=== PATIENT | male | born 1965 | race Caucasian/White ===

== ENCOUNTER 2017-04-06 13:33 | Observation (INO) | payer OTHER ==
[~2017-04-06] VITALS: Ht 167.6 cm; Wt 117.0 kg
[2017-04-06] MEDS ORDERED: ALBUT/IPRATROP 3MG/0.5MG NEB 3 ML VIAL INH STA (14:14)
[2017-04-06 14:37] LABS: BASO % 0.6 %; BASO ABS # 0.03 K/uL (0-0.2); EOS % 1.1 %; EOS ABS # 0.05 K/uL (0-0.5); HEMATOCRIT 45.5 % (42-52); HEMOGLOBIN 15.4 g/dL (14.0-18.0); IG# 0.02 K/uL (0.00-0.02); LYMPH % 32.3 %; LYMPH ABS # 1.52 K/uL (1.2-3.4); MEAN CELL VOLUME 86.2 fL (80-100); MEAN CORPUSCULAR HEMOGLOBIN 29.2 pg (25-34); MEAN CORPUSCULAR HGB CONC 33.8 g/dl (32-36); MEAN PLATELET VOLUME 10.3 fL (7.4-10.4); MONO % 13.8 %; MONO ABS # 0.65 K/uL (0.11-0.59); NEUT % 51.8 %; NEUT ABS # 2.43 K/uL (1.4-6.5); PLATELET COUNT 200 K/uL (130-400); RED CELL DISTRIBUTION WIDTH CV 13.9 % (11.5-14.5); RED CELL DISTRIBUTION WIDTH SD 43.8 fL (36.4-46.3)
--- NOTE | 2017-04-06 14:39 | EMERGENCY ROOM VISIT NOTE ---
History First contact with patient: 13:57 Chief Complaint: SHORTNESS OF BREATH Stated Complaint: SOB Nursing Triage Summary: Patient with c/o SOB and cold symptoms for one month. Patient was on Augmentin without relief. Seen at [facility] and sent here for Eval due to hypoxia( 86% ) with ambulation . History of Present Illness The patient is a 51 year old male who presents to the Emergency Room with complaints of cough, shortness of breath and intermittent fevers for approximately 1 month. The patient saw his primary care physician. He finished a course of Augmentin. Initially his sputum was dark brown in color. After the Augmentin, it is now clear. He did not take his temperature at home, but he has felt chills and sweats. He denies any chest pain. He denies abdominal pain or nausea. He has had some diarrhea the last 2 days. He denies any history of blood clots. He is a former smoker. 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 He denies any leg pain bilaterally. Review of Systems 10 system review performed and negative unless noted in HPI or below Past Medical/Surgical History Medical Problems: (1) Cough productive of purulent sputum Hypertension Borderline diabetes type 2 Social History Smoking Status: Former Smoker Alcohol Use: occasionally Occupation Status: employed Current/Historical Medications Scheduled Amlodipine (Norvasc), 10 MG PO QAM Dextromethorphan Polymr Complx (Delsym), 5 ML PO UD Hydrochlorothiazide (Hctz), 25 MG PO QAM Naproxen Sodium (Aleve), 440 MG PO UD Physical Exam Vital Signs Date Time Temp Pulse Resp B/P (MAP) Pulse Ox O2 Delivery O2 Flow Rate FiO2 04/06/17 18:07 72 20 144/71 95 Nasal Cannula 2.0 04/06/17 17:10 72 18 140/75 95 Room Air 04/06/17 16:32 81 18 138/75 94 Nasal Cannula 2.0 04/06/17 15:40 93 Nasal Cannula 2.0 04/06/17 15:40 93 Nasal Cannula 2.0 04/06/17 15:34 91 24 135/76 91 Room Air 04/06/17 15:11 98 24 145/89 91 Room Air 04/06/17 14:21 99 04/06/17 14:12 92 Room Air 04/06/17 13:41 36.6 96 22 129/88 92 Room Air Physical Exam GENERAL: 51-year-old male, slightly disheveled and sweaty in appearance., SKIN: The skin was without rashes, erythema, edema, or bruising. There is no tenting of the skin. Capillary reflex less than 2 seconds. HEAD: Normocephalic atraumatic. MOUTH: Mucous membranes somewhat dry. NECK: No lymphadenopathy. Cervical spine is nontender. No JVD. HEART: Regular rate and rhythm without murmurs gallops or rubs. LUNGS: Few coarse breath sounds particularly at the left base. No wheezing. No tachypnea. ABDOMEN: Mildly distended. Positive bowel sounds x 4.Soft, nontender, without organomegaly. No guarding or rebound tenderness. MUSCULOSKELETAL: No muscle atrophy, erythema, or edema noted. Strength 5/5 throughout. NEURO: Patient was alert and oriented to person place and time. Normal sensation to touch. No focal neurological deficits. Medical Decision & Procedures ER Provider Diagnostic Interpretation: CT chest with contrast IMPRESSION: 1. There is no evidence of pulmonary embolus in the main, lobar, or segmental pulmonary arteries. 2. Cardiomegaly. 3. There is no airspace consolidation or pleural effusion. Mild diffuse peribronchial thickening suggests reactive airway disease. Clinical correlation will be required. 4. There is nonspecific mediastinal and hilar adenopathy. This may be on a reactive basis; however, other etiologies are not excluded. Clinical correlation will be essential. Consider follow-up chest CT in several months time for reassessment. 5. Splenomegaly and hepatic steatosis. 6. Additional findings as above. Electronically signed by: Avinash Guzman M.D. Laboratory Results 04/06/17 14:20 Red Blood Count 5.28, Mean Corpuscular Volume 86.2, Mean Corpuscular Hemoglobin 29.2, Mean Corpuscular Hemoglobin Concent 33.8, Mean Platelet Volume 10.3, Neutrophils (%) (Auto) 51.8, Lymphocytes (%) (Auto) 32.3, Monocytes (%) (Auto) 13.8, Eosinophils (%) (Auto) 1.1, Basophils (%) (Auto) 0.6, Neutrophils # (Auto ) 2.43, Lymphocytes # (Auto) 1.52, Monocytes # (Auto) 0.65, Eosinophils # (Auto ) 0.05, Basophils # (Auto) 0.03 04/06/17 14:20 Test 04/06/17 14:20 04/06/17 15:08 04/06/17 16:34 White Blood Count 4.70 K/uL (4.8-10.8) Red Blood Count 5.28 M/uL (4.7-6.1) Hemoglobin 15.4 g/dL (14.0-18.0) Hematocrit 45.5 % (42-52) Mean Corpuscular Volume 86.2 fL (80-100) Mean Corpuscular Hemoglobin 29.2 pg (25-34) Mean Corpuscular Hemoglobin Concent 33.8 g/dl (32-36) Platelet Count 200 K/uL (130-400) Mean Platelet Volume 10.3 fL (7.4-10.4) Neutrophils (%) (Auto) 51.8 % Lymphocytes (%) (Auto) 32.3 % Monocytes (%) (Auto) 13.8 % Eosinophils (%) (Auto) 1.1 % Basophils (%) (Auto) 0.6 % Neutrophils # (Auto) 2.43 K/uL (1.4-6.5) Lymphocytes # (Auto) 1.52 K/uL (1.2-3.4) Monocytes # (Auto) 0.65 K/uL (0.11-0.59) Eosinophils # (Auto) 0.05 K/uL (0-0.5) Basophils # (Auto) 0.03 K/uL (0-0.2) RDW Standard Deviation 43.8 fL (36.4-46.3) RDW Coefficient of Variation 13.9 % (11.5-14.5) Immature Granulocyte % (Auto) 0.4 % Immature Granulocyte # (Auto) 0.02 K/uL (0.00-0.02) Prothrombin Time 10.8 SECONDS (9.0-12.0) Prothromb Time International Ratio 1.0 (0.9-1.1) D-Dimer 540 ug/L FEU (0-500) Anion Gap 7.0 mmol/L (3-11) Est Creatinine Clear Calc Drug Dose 81.4 ml/min Estimated GFR () 71.6 Estimated GFR (Non- 61.8 BUN/Creatinine Ratio 10.7 (10-20) Calcium Level 8.6 mg/dl (8.5-10.1) Total Bilirubin 0.8 mg/dl (0.2-1) Aspartate Amino Transf (AST/SGOT) 262 U/L (15-37) Alanine Aminotransferase (ALT/SGPT) 235 U/L (12-78) Alkaline Phosphatase 149 U/L (45-117) Total Creatine Kinase 249 U/L (39-308) Creatine Kinase MB 0.8 ng/ml (0.5-3.6) Creatine Kinase MB Ratio 0.3 (0-3.0) Troponin I < 0.015 ng/ml (0-0.045) Total Protein 8.2 gm/dl (6.4-8.2) Albumin 3.5 gm/dl (3.4-5.0) Globulin 4.7 gm/dl (2.5-4.0) Albumin/Globulin Ratio 0.7 (0.9-2) Acetaminophen Level < 2 ug/ml (10-30) Influenza Type A Antigen POS for Influ A (NEG) Influenza Type B Antigen Neg for Influ B (NEG) Ethyl Alcohol mg/dL < 3.0 mg/dl (0-3) Medications Administered Medications (Trade) Dose Ordered Sig/Juan Diego Route Start Time Stop Time Status Last Admin Dose Admin Albuterol/ Ipratropium (Duoneb) 3 ml ONE STAT INH 04/06/17 14:14 04/06/17 14:17 DC 04/06/17 15:00 3 ML Oseltamivir Phosphate (Tamiflu Cap) 75 mg NOW STAT PO 04/06/17 16:12 04/06/17 16:14 DC 04/06/17 16:18 75 MG Sodium Chloride 1,000 ml @ 999 mls/hr Q1H1M ONCE IV 04/06/17 16:15 04/06/17 17:15 DC 04/06/17 16:18 999 MLS/HR ED Course Patient was seen and examined Vital signs including blood pressure were reviewed medications list was verified with patient Labs were obtained, and a saline lock was established An EKG was performed and reviewed by myself. The patient was put on monitor. He was given an albuterol nebulizer treatment. The patient was reassessed. The albuterol had temporarily helped. We discussed his workup. I also discussed the workup with my supervising physician who is in agreement with my plan. The patient was given 1 dose of Tamiflu. He was also hydrated with 1 L of normal saline. The case was discussed with case management. It was subsequently discussed with the [facility]. [facility] agreed to evaluate the patient for further management. Medical Decision Differential diagnosis: Bronchitis, pneumonia, influenza , other viral syndrome , cardiac ischemia, arrhythmia, pulmonary embolus, C. difficile colitis This patient is a 51-year-old male that presents to emergency department with a cough, shortness of breath and intermittent fevers for the last month. On exam , he was mildly acutely ill in appearance. He was hypoxic at 89% on room air. he had coarse breath sounds at the left base. His workup reveals a positive influenza A. 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 CT of the chest was performed. This was negative for pneumonia or PE. Given his hypoxia, I do not comfortable discharging the patient home. The patient will be admitted to the [facility] service for further workup and treatment. Of note, the patient's LFTs were also abnormal. An acetaminophen and alcohol level were added. The patient admits to occasional alcohol use. This will likely need further workup. This chart was completed in part utilizing [employer] Speech Voice Recognition software. Attempts were made to minimize the grammatical errors, random word insertions, pronoun errors and incomplete sentences. Any formal questions or concerns about the content, text or information contained within the body of this dictation should be directly addressed to the provider for clarification. Medication Reconcilliation Current Medication List: was personally reviewed by de Blood Pressure Screening Patient's blood pressure: Normal blood pressure Impression Primary Impression: Influenza A Departure Information Referrals Wanda Correia C.R.N.P (PCP) Patient Instructions My [facility]
[2017-04-06] MEDS ORDERED: NAPR220T40 PO (14:40)
[2017-04-06] MEDS ORDERED: DLSYL PO (14:42)
[2017-04-06] MEDS ORDERED: HYDR25TA4 PO (14:49)
[2017-04-06] MEDS ORDERED: AMLO-114 PO (14:49)
[2017-04-06 14:56] LABS: ALBUMIN 3.5 gm/dl (3.4-5.0); ALT/SGPT 235 U/L (12-78); BLOOD UREA NITROGEN 14 mg/dl (7-18); CALCIUM 8.6 mg/dl (8.5-10.1); CARBON DIOXIDE 29 mmol/L (21-32); CREATININE 1.34 mg/dl (0.60-1.40); GLUCOSE 205 mg/dl (70-99); POTASSIUM 3.4 mmol/L (3.5-5.1); SODIUM 133 mmol/L (136-145)
[2017-04-06 15:01] LABS: ALKALINE PHOSPHATASE 149 U/L (45-117); AST/SGOT 262 U/L (15-37); CKMB 0.8 ng/ml (0.5-3.6); TOTAL PROTEIN 8.2 gm/dl (6.4-8.2)
[2017-04-06] MEDS ORDERED: OPTIRAY 320 IV PRN (15:15)
--- NOTE | 2017-04-06 15:37 | DIAGNOSTIC IMAGING REPORT ---
CT ANGIOGRAM OF THE CHEST CLINICAL HISTORY: Cough and dyspnea. COMPARISON STUDY: Chest radiographs dated 04/06/2017. TECHNIQUE: Following the IV administration of 94 cc of Optiray 320, CT angiogram of the chest was performed from the upper abdomen to the thoracic inlet utilizing the pulmonary embolus protocol. Images are reviewed in the axial, sagittal, and coronal planes. 3-D MIPS images are created and assessed. IV contrast was administered without complication. A dose lowering technique was utilized adhering to the principles of ALARA. CT DOSE: 653.86 mGy.cm FINDINGS: Thyroid: Imaged portions of the thyroid gland are normal in size and attenuation. Thoracic aorta: The thoracic aorta is normal in caliber and demonstrates standard 3-vessel arch anatomy. No dissection is seen. Pulmonary vasculature: The pulmonary trunk is normal in caliber. There are no filling defects identified in main, lobar, or segmental pulmonary branches to suggest pulmonary embolus. Heart: The heart is enlarged and there is trace pericardial effusion. Lungs and pleural spaces: Evaluation of the lung parenchyma is modestly degraded by motion artifact. There is mild diffuse peribronchial thickening. No airspace consolidation or pleural effusion is identified. Dependent atelectasis is observed the trachea and central airways are clear. Mediastinum: There is mediastinal lymphadenopathy. A right paratracheal node on image #180 measures 1.3 cm in short axis. A subcarinal node on image #137 measures 1.5 cm in short axis. Ivonne: There is bilateral hilar adenopathy. A hilar lymph nodes measure up to 2.1 cm in short axis. Axillae: There is no axillary lymphadenopathy. Upper abdomen: A tiny hiatal hernia is identified. The spleen is enlarged, measuring 15.3 cm in length. Hepatic steatosis is identified. Skeletal structures: No lytic or blastic bony lesions are seen. Soft tissues: A 1.5 cm sebaceous cyst is noted in the left upper back on image #224. IMPRESSION: 1. There is no evidence of pulmonary embolus in the main, lobar, or segmental pulmonary arteries. 2. Cardiomegaly. 3. There is no airspace consolidation or pleural effusion. Mild diffuse peribronchial thickening suggests reactive airway disease. Clinical correlation will be required. 4. There is nonspecific mediastinal and hilar adenopathy. This may be on a reactive basis; however, other etiologies are not excluded. Clinical correlation will be essential. Consider follow-up chest CT in several months time for reassessment. 5. Splenomegaly and hepatic steatosis. 6. Additional findings as above. Electronically signed by: Avinash Guzman M.D. 04/06/2017 3:36 PM Dictated Date/Time: 04/06/2017 3:31 PM
[2017-04-06 15:43] LABS: INFLUENZA B ANTIGEN Neg for Influ B (NEG)
[2017-04-06] MEDS ORDERED: OSELTAMIVIR PHOSPHATE 75 MG CAP PO STA (16:12)
[2017-04-06] MEDS ORDERED: SODIUM CHLORIDE 0.9% 1000ML 1,000 ML IV ONE (16:15)
[2017-04-06] MEDS ORDERED: ALUMINUM/MAGNESIUM/SIMETH (MAALOX MAX) 30 ML UDC PO PRN (18:00)
[2017-04-06] MEDS ORDERED: ONDANSETRON INJ 2 MG/ML 2 ML VIAL IV PRN (18:00)
[2017-04-06] MEDS ORDERED: MAGNESIUM HYDROXIDE SUSP 30 ML UDC PO PRN (18:00)
[2017-04-06] MEDS ORDERED: POLYETHYLENE (MIRALAX) 17 GM PACK PO PRN (18:00)
[2017-04-06 18:45] VITALS: BP 149/85; PULSE 79; TEMP 36.6; O2SAT 93; Ht 167.6 cm; Wt 117.0 kg
[2017-04-06] MEDS ORDERED: IV FLUIDS COMPLETED PRN (18:45)
--- NOTE | 2017-04-06 18:48 | History and Physical ---
History & Physical Date & Time of Service: Apr 06, 2017 at 18:41 Chief Complaint: SOB Primary Care Physician: Wanda Correia C.R.N.P History of Present Illness Source: patient The patient is a 51 year old male who presents to the Emergency Room with complaints of cough Over the past two days he has had worsening productive cough, chills, muscle aches and decreased appetite He then decided to go and see his PCP at [facility] and was told to come to the ED secondary to low oxygen levels Of note he has had nasal congestion and cough for one month and has been treated with augmentin for 1 week. In the ED he was found to be flu positive. A CT scan did not show any focal consolidations but did show splenomegaly and hepatic steatosis. He also had elevated AST and ALT in the 200's. The patient was ambulated in the ED and due to decreasing oxygen saturations to 88% with ambulation it was decided to admit the patient under observation. Past Medical/Surgical History HTN Diabetes Family History Dad had DM Mom had HTN Grandpa had DM No FH of lung disease Social History Smoking Status: Former Smoker Occupational Status: employed Allergies Coded Allergies: No Known Allergies (Unverified , 04/06/17) Home Medications Scheduled Amlodipine (Norvasc), 10 MG PO QAM Dextromethorphan Polymr Complx (Delsym), 5 ML PO UD Hydrochlorothiazide (Hctz), 25 MG PO QAM Naproxen Sodium (Aleve), 440 MG PO UD Review of Systems Constitutional: + fever, + chills ENT: + nasal symptoms Respiratory: + cough, + sputum, + shortness of breath Cardiovascular: No chest pain, No edema, No palpitations Abdomen: + nausea, + diarrhea, No pain, No vomiting, No constipation Musculoskeletal: + joint pain, + muscle pain Genitourinary - Male: No hematuria, No dysuria Integumentary: No rash, No itch, No new/changing skin lesions Physical Exam Vital Signs Date Time Temp Pulse Resp B/P (MAP) Pulse Ox O2 Delivery O2 Flow Rate FiO2 04/06/17 18:07 72 20 144/71 95 Nasal Cannula 2.0 04/06/17 17:10 72 18 140/75 95 Room Air 04/06/17 16:32 81 18 138/75 94 Nasal Cannula 2.0 04/06/17 15:40 93 Nasal Cannula 2.0 04/06/17 15:40 93 Nasal Cannula 2.0 04/06/17 15:34 91 24 135/76 91 Room Air 04/06/17 15:11 98 24 145/89 91 Room Air 04/06/17 14:21 99 04/06/17 14:12 92 Room Air 04/06/17 13:41 36.6 96 22 129/88 92 Room Air General Appearance: WD/WN, no apparent distress, + obese ENT: hearing grossly normal, pharynx normal Neck: supple, no JVD, trachea midline Respiratory/Chest: chest non-tender, no respiratory distress, no accessory muscle use, + wheezing (bilateral in both lower lobes) Cardiovascular: regular rate, rhythm, no murmur, normal peripheral pulses Abdomen/GI: normal bowel sounds, non tender, soft, + distended Back: normal inspection, no CVA tenderness Extremities/Musculoskelatal: no calf tenderness, no pedal edema, non-tender Neurologic/Psych: alert, normal mood/affect, oriented x 3 Diagnostics Laboratory Results Results Past 24 Hours Test 04/06/17 14:20 04/06/17 15:08 04/06/17 16:34 Range/Units White Blood Count 4.70 4.8-10.8 K/uL Red Blood Count 5.28 4.7-6.1 M/uL Hemoglobin 15.4 14.0-18.0 g/dL Hematocrit 45.5 42-52 % Mean Corpuscular Volume 86.2 80-100 fL Mean Corpuscular Hemoglobin 29.2 25-34 pg Mean Corpuscular Hemoglobin Concent 33.8 32-36 g/dl Platelet Count 200 130-400 K/uL Mean Platelet Volume 10.3 7.4-10.4 fL Neutrophils (%) (Auto) 51.8 % Lymphocytes (%) (Auto) 32.3 % Monocytes (%) (Auto) 13.8 % Eosinophils (%) (Auto) 1.1 % Basophils (%) (Auto) 0.6 % Neutrophils # (Auto) 2.43 1.4-6.5 K/uL Lymphocytes # (Auto) 1.52 1.2-3.4 K/uL Monocytes # (Auto) 0.65 0.11-0.59 K/uL Eosinophils # (Auto) 0.05 0-0.5 K/uL Basophils # (Auto) 0.03 0-0.2 K/uL RDW Standard Deviation 43.8 36.4-46.3 fL RDW Coefficient of Variation 13.9 11.5-14.5 % Immature Granulocyte % (Auto) 0.4 % Immature Granulocyte # (Auto) 0.02 0.00-0.02 K/uL Prothrombin Time 10.8 9.0-12.0 SECONDS Prothromb Time International Ratio 1.0 0.9-1.1 D-Dimer 540 0-500 ug/L FEU Sodium Level 133 136-145 mmol/L Potassium Level 3.4 3.5-5.1 mmol/L Chloride Level 98 98-107 mmol/L Carbon Dioxide Level 29 21-32 mmol/L Anion Gap 7.0 3-11 mmol/L Blood Urea Nitrogen 14 7-18 mg/dl Creatinine 1.34 0.60-1.40 mg/dl Est Creatinine Clear Calc Drug Dose 81.4 ml/min Estimated GFR () 71.6 Estimated GFR (Non- 61.8 BUN/Creatinine Ratio 10.7 10-20 Random Glucose 205 70-99 mg/dl Calcium Level 8.6 8.5-10.1 mg/dl Total Bilirubin 0.8 0.2-1 mg/dl Aspartate Amino Transf (AST/SGOT) 262 15-37 U/L Alanine Aminotransferase (ALT/SGPT) 235 12-78 U/L Alkaline Phosphatase 149 45-117 U/L Total Creatine Kinase 249 39-308 U/L Creatine Kinase MB 0.8 0.5-3.6 ng/ml Creatine Kinase MB Ratio 0.3 0-3.0 Troponin I < 0.015 0-0.045 ng/ml Total Protein 8.2 6.4-8.2 gm/dl Albumin 3.5 3.4-5.0 gm/dl Globulin 4.7 2.5-4.0 gm/dl Albumin/Globulin Ratio 0.7 0.9-2 Acetaminophen Level < 2 10-30 ug/ml Influenza Type A Antigen POS for Influ A NEG Influenza Type B Antigen Neg for Influ B NEG Ethyl Alcohol mg/dL < 3.0 0-3 mg/dl Diagnostic Radiology 1. There is no evidence of pulmonary embolus in the main, lobar, or segmental pulmonary arteries. 2. Cardiomegaly. 3. There is no airspace consolidation or pleural effusion. Mild diffuse peribronchial thickening suggests reactive airway disease. Clinical correlation will be required. 4. There is nonspecific mediastinal and hilar adenopathy. This may be on a reactive basis; however, other etiologies are not excluded. Clinical correlation will be essential. Consider follow-up chest CT in several months time for reassessment. 5. Splenomegaly and hepatic steatosis. Normal EKG Impression Assessment and Plan 51 year old male with a PMH of HTN and Diabetes presented with a flu like symptoms and was found to have influenza Influenza A - continue tamiflu PO - O2 via nasal cannula as needed - isolation precautions - duoneb prn shortness of breath - prednisone 40mg PO - no evidence of pneumonia on CT Transaminitis - AST and ALT elevated in 250's - likely secondary to the flu - no hx of alcohol abuse, IV drugs, blood transfusions, gallbladder disease - Does have hepatic steatosis - Will check lipids in the AM Diarrhea - check cdiff Hx of DMT2 - untreated currently but patient states starting medication soon - check HbA1c HTN - Continue HCTZ and amlodipine - continue to monitor BP DVT prophylaxis - lovenox 40mg subq FULL CODE Level of Care Med/Surg Resuscitation Status FULL RESUSCITATION VTE Prophylaxis VTE Risk Assessment Done? Y/N: Yes Risk Level: Moderate Given or contraindicated: Enoxaparin (Lovenox)SQ History Resident Physician Supervision Note: I was present with Dr. Day during the history and exam. I discussed the case with the resident and agree with the findings and plan as documented in the note. Any exceptions or clarifications are listed here. Acute on chronic cough in the setting of recent ABRS treated with abx with 2 days of acute exacerbation w/ flu +ve. Predominant sx is SOB on exertion/ ambulation which is stable here. Seen at [facility] and refered to [facility] General Appearance: mild distress, obese Eye Exam: bilateral eye PERRL, bilateral eye EOMI Neck: non-tender, full range of motion, supple Respiratory: chest non-tender, respiratory distress, decreased breath sounds (b /l bases), wheezing (b/l bases) Cardiovascular: normal peripheral pulses, regular rate, rhythm, no murmur Gastrointestinal: normal bowel sounds, non tender, soft Assessment/Plan 51 y/o male h/o HTN, DMII p/w Flu A + Flu A -continue tamiflu, O2 by protocol, duonebs and pred burst Transamintis -likely 2/2 influenza. Trend CMP Diarrhea - f/u C. Diff DMII -A1c HTN - continue HCTZ, amlodipine VTE PPX -lovenox FULL CODE
[2017-04-06] MEDS ORDERED: ALBUT/IPRATROP 3MG/0.5MG NEB 3 ML VIAL INH PRN (19:00)
[2017-04-06] MEDS: SODIUM CHLORIDE 0.9% 1000ML 1,000 ML IV SCH (19:39)
[2017-04-06] MEDS ORDERED: INFLUENZA ADMINISTRATION CHARGE ONE (19:45)
[2017-04-06] MEDS ORDERED: INFLUENZA VIRUS QUAD VACCINE 0.5 ML SYR IM. ONE (19:45)
[2017-04-06] MEDS ORDERED: ENOXAPARIN 40 MG/0.4 ML SYR SQ SCH (21:00)
[2017-04-06 23:31] VITALS: BP 144/82; PULSE 77; TEMP 37; O2SAT 90
[2017-04-07] MEDS: SODIUM CHLORIDE 0.9% 1000ML 1,000 ML IV SCH (04:22)
[2017-04-07 07:16] LABS: HEMATOCRIT 44.9 % (42-52); HEMOGLOBIN 15.2 g/dL (14.0-18.0); MEAN CELL VOLUME 85.9 fL (80-100); MEAN CORPUSCULAR HEMOGLOBIN 29.1 pg (25-34); MEAN CORPUSCULAR HGB CONC 33.9 g/dl (32-36); MEAN PLATELET VOLUME 10.4 fL (7.4-10.4); PLATELET COUNT 218 K/uL (130-400); RED CELL DISTRIBUTION WIDTH CV 13.8 % (11.5-14.5); RED CELL DISTRIBUTION WIDTH SD 43.4 fL (36.4-46.3)
[2017-04-07 07:26] VITALS: BP_SYST 117; BP_SYST 165; BP_DIAS 65; BP_DIAS 69; PULSE 73; TEMP 36.6; O2SAT 93
[2017-04-07 07:53] LABS: ALBUMIN 3.1 gm/dl (3.4-5.0); POTASSIUM 4.2 mmol/L (3.5-5.1); TOTAL PROTEIN 7.4 gm/dl (6.4-8.2)
[2017-04-07 08:00] VITALS: O2SAT 93
[2017-04-07] MEDS ORDERED: HYDROCHLOROTHIAZIDE 25 MG TAB PO SCH (08:00)
[2017-04-07] MEDS ORDERED: AMLODIPINE BESYLATE 5 MG TAB PO SCH (08:00)
[2017-04-07 08:14] LABS: HEMOGLOBIN A1C 7.5 % (4.5-5.6)
[2017-04-07] MEDS ORDERED: OSELTAMIVIR PHOSPHATE 75 MG CAP PO ONE (08:47)
--- NOTE | 2017-04-07 14:18 | Medical Student: [facility] ---
Med Student History & Physical Date & Time of Service: Apr 07, 2017 at 14:18 Chief Complaint: Cough Productive Of Purulent Sputum Primary Care Physician: Wanda Correia C.R.N.P History of Present Illness This is a 51-year-old man with a history of HTN, prediabetes, and a 5-6 pack- year smoking history who presents with a 1 month history of cough and lack of energy. He was treated with amoxicillin 1 week ago and said he did have improvement in his symptoms. Last evening, he says he began to have decreased energy, chills, muscle aches, wheezing, and SOB with exertion. He denies chest pain, pleurisy, subjective fever, leg swelling or pain, and tachycardia. Past Medical/Surgical History Hypertension Prediabetes Hx of tooth extraction Family History Father: pertinent history of ("dying young") Mother: HTN Grandfather: HTN, diabetes Social History Smoked 1/2 pack per day for 10-12 years. Quit 3 years ago. 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) Allergies Coded Allergies: No Known Allergies (Unverified , 04/06/17) Medications Amlodipine (Norvasc), 10 MG PO QAM Dextromethorphan Polymr Complx (Delsym), 5 ML PO UD Hydrochlorothiazide (Hctz), 25 MG PO QAM Naproxen Sodium (Aleve), 440 MG PO UD Oseltamivir (Tamiflu), 75 MG PO BID Prednisone (Prednisone), 40 MG PO DAILY Physical Exam Vital Signs (24 Hours) Date Time Temp Pulse Resp B/P (MAP) Pulse Ox O2 Delivery O2 Flow Rate FiO2 04/07/17 08:00 93 Room Air 04/07/17 07:26 36.6 73 20 165/69 (101) 93 Room Air 117/65 (82) 04/07/17 00:00 Room Air 04/06/17 23:31 37.0 77 18 144/82 (102) 90 Room Air 04/06/17 19:09 76 20 133/80 95 Room Air 04/06/17 18:45 36.6 79 18 149/85 93 Room Air 04/06/17 18:07 72 20 144/71 95 Nasal Cannula 2.0 04/06/17 17:10 72 18 140/75 95 Room Air 04/06/17 16:32 81 18 138/75 94 Nasal Cannula 2.0 04/06/17 15:40 93 Nasal Cannula 2.0 04/06/17 15:40 93 Nasal Cannula 2.0 04/06/17 15:34 91 24 135/76 91 Room Air 04/06/17 15:11 98 24 145/89 91 Room Air 04/06/17 14:21 99 Diagnostics Laboratory Results Results Past 24 Hours Test 04/06/17 14:20 04/06/17 15:08 04/06/17 16:34 04/06/17 19:26 Range/Units White Blood Count 4.70 4.8-10.8 K/uL Red Blood Count 5.28 4.7-6.1 M/uL Hemoglobin 15.4 14.0-18.0 g/dL Hematocrit 45.5 42-52 % Mean Corpuscular Volume 86.2 80-100 fL Mean Corpuscular Hemoglobin 29.2 25-34 pg Mean Corpuscular Hemoglobin Concent 33.8 32-36 g/dl Platelet Count 200 130-400 K/uL Mean Platelet Volume 10.3 7.4-10.4 fL Neutrophils (%) (Auto) 51.8 % Lymphocytes (%) (Auto) 32.3 % Monocytes (%) (Auto) 13.8 % Eosinophils (%) (Auto) 1.1 % Basophils (%) (Auto) 0.6 % Neutrophils # (Auto) 2.43 1.4-6.5 K/uL Lymphocytes # (Auto) 1.52 1.2-3.4 K/uL Monocytes # (Auto) 0.65 0.11-0.59 K/uL Eosinophils # (Auto) 0.05 0-0.5 K/uL Basophils # (Auto) 0.03 0-0.2 K/uL RDW Standard Deviation 43.8 36.4-46.3 fL RDW Coefficient of Variation 13.9 11.5-14.5 % Immature Granulocyte % (Auto) 0.4 % Immature Granulocyte # (Auto) 0.02 0.00-0.02 K/uL Prothrombin Time 10.8 9.0-12.0 SECONDS Prothromb Time International Ratio 1.0 0.9-1.1 D-Dimer 540 0-500 ug/L FEU Sodium Level 133 136-145 mmol/L Potassium Level 3.4 3.5-5.1 mmol/L Chloride Level 98 98-107 mmol/L Carbon Dioxide Level 29 21-32 mmol/L Anion Gap 7.0 3-11 mmol/L Blood Urea Nitrogen 14 7-18 mg/dl Creatinine 1.34 0.60-1.40 mg/dl Est Creatinine Clear Calc Drug Dose 81.4 ml/min Estimated GFR () 71.6 Estimated GFR (Non- 61.8 BUN/Creatinine Ratio 10.7 10-20 Random Glucose 205 70-99 mg/dl Calcium Level 8.6 8.5-10.1 mg/dl Total Bilirubin 0.8 0.2-1 mg/dl Aspartate Amino Transf (AST/SGOT) 262 15-37 U/L Alanine Aminotransferase (ALT/SGPT) 235 12-78 U/L Alkaline Phosphatase 149 45-117 U/L Total Creatine Kinase 249 39-308 U/L Creatine Kinase MB 0.8 0.5-3.6 ng/ml Creatine Kinase MB Ratio 0.3 0-3.0 Troponin I < 0.015 0-0.045 ng/ml Total Protein 8.2 6.4-8.2 gm/dl Albumin 3.5 3.4-5.0 gm/dl Globulin 4.7 2.5-4.0 gm/dl Albumin/Globulin Ratio 0.7 0.9-2 Acetaminophen Level < 2 10-30 ug/ml Influenza Type A Antigen POS for Influ A NEG Influenza Type B Antigen Neg for Influ B NEG Ethyl Alcohol mg/dL < 3.0 0-3 mg/dl Bedside Glucose 107 70-99 mg/dl Test 04/07/17 06:42 Range/Units White Blood Count 4.40 4.8-10.8 K/uL Red Blood Count 5.23 4.7-6.1 M/uL Hemoglobin 15.2 14.0-18.0 g/dL Hematocrit 44.9 42-52 % Mean Corpuscular Volume 85.9 80-100 fL Mean Corpuscular Hemoglobin 29.1 25-34 pg Mean Corpuscular Hemoglobin Concent 33.9 32-36 g/dl RDW Standard Deviation 43.4 36.4-46.3 fL RDW Coefficient of Variation 13.8 11.5-14.5 % Platelet Count 218 130-400 K/uL Mean Platelet Volume 10.4 7.4-10.4 fL Sodium Level 137 136-145 mmol/L Potassium Level 4.2 3.5-5.1 mmol/L Chloride Level 103 98-107 mmol/L Carbon Dioxide Level 29 21-32 mmol/L Anion Gap 6.0 3-11 mmol/L Blood Urea Nitrogen 13 7-18 mg/dl Creatinine 1.00 0.60-1.40 mg/dl Est Creatinine Clear Calc Drug Dose 107.5 ml/min Estimated GFR () 102.0 Estimated GFR (Non- 88.0 BUN/Creatinine Ratio 12.5 10-20 Random Glucose 152 70-99 mg/dl Estimated Average Glucose 169 mg/dl Hemoglobin A1c 7.5 4.5-5.6 % Calcium Level 8.0 8.5-10.1 mg/dl Total Bilirubin 0.4 0.2-1 mg/dl Aspartate Amino Transf (AST/SGOT) 178 15-37 U/L Alanine Aminotransferase (ALT/SGPT) 190 12-78 U/L Alkaline Phosphatase 130 45-117 U/L Total Protein 7.4 6.4-8.2 gm/dl Albumin 3.1 3.4-5.0 gm/dl Globulin 4.3 2.5-4.0 gm/dl Albumin/Globulin Ratio 0.7 0.9-2 Triglycerides Level 147 0-150 mg/dl Cholesterol Level 152 0-200 mg/dl HDL Cholesterol 26 mg/dl LDL Cholesterol, Calculated 97 mg/dl VLDL Cholesterol, Calculated 29 mg/dl Cholesterol/HDL Ratio 5.8 Procalcitonin 0.10 0-0.5 ng/ml Impression Advanced Directives Existing Living Will: No Existing Power of Street Roller Engineer: No
[2017-04-07] MEDS ORDERED: OSEL75CA12 PO ×2 (15:02→16:01)
--- NOTE | 2017-04-07 15:22 | Discharge Instructions ---
Discharge Instructions Date of Service Apr 07, 2017. Admission Reason for Admission: Cough Productive Of Purulent Sputum Discharge Discharge Diagnosis / Problem: Flu Discharge Goals Goal(s): Improve function, Therapeutic intervention, Prevent Disease Progression Activity Recommendations Activity Limitations: per Instructions/Follow-up section . Instructions / Follow-Up Instructions / Follow-Up You were diagnosed with the flu and you had to stay in the hospital overnight in order for us to monitor your oxygen levels as they were decreased while you were in the emergency department. Flu- we will be prescribing you with 3 more days of medication. These can cause some nausea. Please take these as prescribed. You may return to work when you are feeling able. Diabetes - please follow up with your PCP for management of your diabetes. Your HbA1c in the hospital was 7.5. If you experience any worsening shortness of breath, chest pain, fevers or unable to keep down food then please come back to the emergency department Current Hospital Diet Patient's current hospital diet: Diabetes Type 2 Diet Discharge Diet Recommended Diet: Diabetes Type 2 Diet Pending Studies Studies pending at discharge: no Laboratory Results Hemoglobin A1c Test 04/07/17 06:42 Range/Units Estimated Average Glucose 169 mg/dl Hemoglobin A1c 7.5 H 4.5-5.6 % Lipid Panel Test 04/07/17 06:42 Range/Units Triglycerides Level 147 0-150 mg/dl Cholesterol Level 152 0-200 mg/dl HDL Cholesterol 26 mg/dl Cholesterol/HDL Ratio 5.8 LDL Cholesterol, Calculated 97 mg/dl Medical Emergencies . Who to Call and When: Medical Emergencies: If at any time you feel your situation is an emergency, please call 911 immediately. . Non-Emergent Contact Non-Emergency issues call your: Primary Care Provider . . "Provider Documentation" section prepared by Srinivas Day. . VTE Core Measure Inpt VTE Proph given/why not?: Enoxaparin (Lovenox)SQ
[2017-04-07 15:37] VITALS: BP 117/65; PULSE 73; TEMP 36.6; O2SAT 93
[2017-04-07 16:18] VITALS: BP 134/82; PULSE 73; TEMP 37.1; O2SAT 92
[2017-04-07] MEDS ORDERED: PRD20 PO (16:24)
--- NOTE | 2017-04-07 16:29 | Discharge Summary ---
Discharge Summary Date of Service Apr 07, 2017. Discharge Summary Admission Date: Apr 06, 2017 at 18:30 Discharge Date: Apr 07, 2017 Discharge Disposition: Home Principal Diagnosis: Flu Medication Reconciliation New Medications: Oseltamivir (Tamiflu) 75 Mg Cap 75 MG PO BID for 3 Days, #6 CAP Continued Medications: Amlodipine (Norvasc) 10 Mg Tab 10 MG PO QAM Dextromethorphan Polymr Complx (Delsym) 30 Mg/5 Ml Liqcr 5 ML PO UD Hydrochlorothiazide (Hctz) 25 Mg Tab 25 MG PO QAM Naproxen Sodium (Aleve) 220 Mg Tab 440 MG PO UD Discharge Exam 51 year old male with the flu Feeling well today and with mild cough Sweats overnight but remained afebrile No shortness of breath or chest pain Review of Systems: Constitutional: + sweats, No fever, No chills Respiratory: + cough, No sputum, No shortness of breath, No dyspnea on exertion, No dyspnea at rest Cardiovascular: No chest pain, No edema, No palpitations Abdomen: No pain, No nausea, No vomiting Musculoskeletal: No joint pain, No muscle pain Genitourinary - Male: No hematuria, No dysuria Physical Exam: General Appearance: WD/WN, no apparent distress ENT: hearing grossly normal, pharynx normal Neck: supple, no JVD, trachea midline Respiratory/Chest: no respiratory distress, no accessory muscle use, + crackles (mild LLL crackles) Cardiovascular: regular rate, rhythm, no edema, no murmur, normal peripheral pulses Abdomen / GI: normal bowel sounds, non tender, soft Neurologic/Psychiatric: alert, normal reflexes, oriented x 3 Skin: normal color, warm/dry, no rash Hospital Course 51 year old male with a PMH of HTN and Diabetes presented with a flu like symptoms and was found to have influenza Influenza A - continue tamiflu PO on discharge - O2 via nasal cannula as needed - isolation precautions - prednisone 40mg PO---> continue 5 day steroid burst - no evidence of pneumonia on CT Transaminitis - AST and ALT elevated in 250's---> decrease to mid 100''s on discharge---> repeat with PCP - likely secondary to the flu - no hx of alcohol abuse, IV drugs, blood transfusions, gallbladder disease - Does have hepatic steatosis - Lipid panel wnl Hx of DMT2 - untreated currently but patient states starting medication soon - HbA1c 7.5----> will start medication as an outpatient with PCP HTN - Continue HCTZ and amlodipine - continue to monitor BP Total Time Spent: Less than 30 minutes This includes examination of the patient, discharge planning, medication reconciliation, and communication with other providers. Discharge Instructions Please refer to the electronic Patient Visit Report (Discharge Instructions) for additional information. Resident Physician Supervision Note: I was present with Dr. Day during the history and exam. Upon exam, patient without respiratory complaints, overall feeling much better. Agree with discharge on Tamiflu. Discussed need for metformin for his newly diagnosed diabetes, but will hold off on metformin now due to potential GI side effects of Tamiflu and metformin when first started. He will address with his PCP at follow up. Documented By: Satish Ramos Additional Copies To Wanda Correia C.R.N.P
[2017-04-07] MEDS ORDERED: OSELTAMIVIR PHOSPHATE 75 MG CAP PO SCH (20:00)
== END 2017-04-07 17:00 | disposition home or self-care (01) ==
LOC: C.EDB 13:34 → C.MS4W 18:30 → ENRESERV 18:49
PROVIDERS: ADMIT Family Medicine; ATTEND Family Medicine
DX: J09.X2 Influenza due to identified novel influenza A virus with other respiratory manifestations (principal); R19.7 Diarrhea, unspecified; I10 Essential (primary) hypertension; E11.9 Type 2 diabetes mellitus without complications; Z87.891 Personal history of nicotine dependence; Z82.49 Family history of ischemic heart disease and other diseases of the circulatory system; Z83.3 Family history of diabetes mellitus

== ENCOUNTER → 2017-04-06 | Outpatient (CLI) | payer OTHER ==
[~2017-04-06] MED LIST: AMLO-114 PO; DLSYL PO; HYDR25TA4 PO; NAPR220T40 PO; OSEL75CA12 PO; PRD20 PO
--- NOTE | 2017-04-06 12:24 | DIAGNOSTIC IMAGING REPORT ---
CHEST 2 VIEWS ROUTINE CLINICAL HISTORY: DYSPNEA COMPARISON STUDY: 02/29/2016 FINDINGS: The cardiac and mediastinal contours are normal. There is no evidence of focal pulmonary consolidation. There is no evidence of failure. No pleural effusions are visualized.[ There are minor left basilar atelectatic changes. IMPRESSION: No active disease in the chest. Electronically signed by: Richard Leslie M.D. 04/06/2017 12:23 PM Dictated Date/Time: 04/06/2017 12:23 PM
== END | disposition home or self-care (01) ==
LOC: C.RADPV 12:07
PROVIDERS: ATTEND Nurse Practitioner Family
DX: R06.00 Dyspnea, unspecified (principal)

== ENCOUNTER → 2017-04-26 | Outpatient (CLI) | payer OTHER ==
[2017-04-26 13:50] LABS: ALBUMIN 3.6 gm/dl (3.4-5.0)
== END | disposition home or self-care (01) ==
LOC: C.LABPVFM 10:09
PROVIDERS: ATTEND Family Medicine
DX: R74.8 Abnormal levels of other serum enzymes (principal)

== ENCOUNTER 2018-10-02 05:44 | Inpatient (IN) ==
--- NOTE | 2018-09-04 14:33 | PAT Medication Instructions ---
Medication Instructions Date of Service September 04, 2018 Home Medications amlodipine 10 mg PO DAILY spironolactone 25 mg PO DAILY DO NOT take the morning of surgery spironolactone 25 mg PO DAILY Take morning of surgery With a small sip of water, OTHERWISE NOTHING TO EAT OR DRINK AFTER MIDNIGHT: amlodipine 10 mg PO DAILY Other Notes If you have any questions please call us at [phone] or [phone] or [phone] or [phone]
--- NOTE | 2018-09-05 10:45 | Anesthesiology Consultation ---
Date of Service September 05, 2018 Assessment & Plan (1) Encounter for pre-operative examination: - Check BSG AM DOS - Possible difficult intubation: due to anatomy Chart Review Chart Review: Acceptable Risk for Surgery and Patient seen in Pre Admission Testing Teaching & Discussion Pre-Anesthesia Teaching/Discussion Notes: Instructed NPO after midnight before surgery,except medications with 15 cc of water. Medication instructions provided according to the PAT guidelines. History Surgery Operation Date: 10/02/18 07:30 Proposed Procedures p Left Hand Assisted Laparoscopic Nephrectomy - Madan Foster MD Height/Weight Height: 5 ft 6 in Weight: 113 kg Allergies Allergy/AdvReac Type Severity Reaction Status Date / Time No Known Allergies Allergy Unverified 09/03/18 10:05 Medications Home Medications Medication Instructions Recorded Confirmed Last Taken amlodipine 10 mg PO DAILY 09/03/18 09/03/18 Unknown hydrochlorothiazide 12.5 mg PO DAILY 09/05/18 09/05/18 Unknown Past Medical History Medical History HTN (hypertension) Diabetes PREVIOUSLY ON METFORMIN; DISCONTIONUED- PATIENT NOW "DIET CONTROLLED" Kidney tumor LEFT Morbid obesity Sleep apnea SUSPECTED; NO SLEEP STUDY Exercise / Class Metabolic Activity II 4-5 Yardwork/Stairs/Walk up hill Past Surgical History Surgical History Hx of wisdom tooth extraction Past Anesthesia History No Hx of Anesthesia Complications and No Family Hx of Anesthesia Complications History of PONV No Hx of PONV and No Hx of Motion Sickness Social History Smoking Status: Former smoker Smoking cigarettes per day: QUIT 5 YEARS AGO; RARE CIGAR USE Do You Dip or Chew Tobacco: No Hx Alcohol Use: Yes Alcohol type: beer and hard liquor alcohol intake frequency: a few times a week Hx Substance Use: No substance use type: does not use Review of Systems Patient denies chest pain, shortness of breath, dyspnea on exertion, reflux, cough, wheezing, palpitations. Physical Exam Vital Signs VITALS BP 136/90 P 77 TEMP 97.8 SP02 94%RA RESP 20 PHYSICAL Full neck and c-spine range of motion. Full TMJ range of motion. TMD 4 finger breaths Mallampati Score 4 (small oral opening) Dentition: lower left side tooth/molars missing, ?implant on lower left side Lungs: clear throughout to auscultation Cardiac: regular rate and rhythm, no murmurs noted, distant heart sounds Spine: normal Carotid arteries: negative bruit Extremities: no edema Short thick neck Testing Laboratory Results 09/05/18 11:04 09/05/18 11:04 Urine Color Yellow 09/05/18 11:04 Urine Appearance Clear (Clear) 09/05/18 11:04 Urine pH 6.5 (4.5-7.5) 09/05/18 11:04 Ur Specific [place] 1.021 (1.000-1.030) 09/05/18 11:04 Urine Protein 1+ (Negative) H 09/05/18 11:04 Urine Glucose (UA) Negative (Negative) 09/05/18 11:04 Urine Ketones Negative (Negative) 09/05/18 11:04 Urine Nitrite Negative (Negative) 09/05/18 11:04 Ur Leukocyte Esterase Negative (Negative) 09/05/18 11:04 Urine WBC (Auto) 1-5 /hpf (0-5) 09/05/18 11:04 Urine RBC (Auto) 0-4 /hpf (0-4) 09/05/18 11:04 U Hyaline Cast (Auto) 1-5 /lpf (0-5) 09/05/18 11:04 U Epithel Cells (Auto) 5-10 /lpf (0-5) H 09/05/18 11:04 Urine Bacteria (Auto) Negative (Negative) 09/05/18 11:04 Blood Type B Positive 09/05/18 11:04 Antibody Screen NEGATIVE 09/05/18 11:04 Electrocardiogram Date: 01/12/18 NSR at 65bpm. NS TWA. Chest X-Ray Date: 09/05/18 Findings: + NAD No acute cardiopulmonary findings. Stable mild cardiomegaly. Stress Test Date: 03/20/15 Type: exercise Negative stress ECHO/EKG for ischemia at 86% MPHR. No arrhythmia. No chest pain. EF 60-65%. Mild cLVH. No significant valvular disease. Technically difficult study enhanced with IV definity. 7 METS.
--- NOTE | 2018-09-05 11:42 | XRay Report ---
XR chest Pre-admission PA/Lat CLINICAL HISTORY: Preoperative evaluation. COMPARISON STUDY: Chest radiograph and chest CT April 06, 2017. FINDINGS: Lung volumes are normal. Lungs are clear. There is no pneumothorax or pleural effusion. Mil d cardiomegaly is unchanged. Mediastinal contours are normal. There is no evidence for pulmonary vick a. IMPRESSION: 1. No acute cardiopulmonary findings. 2. Stable mild cardiomegaly. Electronically signed by: Marino Raza M.D. 09/05/2018 11:40 AM
[2018-09-05 13:10] LABS: Basophils # (auto) 0.04 K/uL (0-0.2); Basophils % (auto) 0.5 %; Eosinophils # (auto) 0.24 K/uL (0-0.5); Hematocrit (blood only) 45.8 % (42-52); Immature Granulocytes # (auto) 0.04 K/uL (0.00-0.02); Immature Granulocytes % (auto) 0.5 %; Lymphocytes # (auto) 1.61 K/uL (1.2-3.4); Mean Corpuscular Hgb Conc 34.9 g/dL (32-36); Mean Corpuscular Volume 85.1 fL (80-100); Mean Platelet Volume 10.7 fL (7.4-10.4); Monocytes # (auto) 0.64 K/uL (0.11-0.59); Monocytes % (auto) 7.9 %; Neutrophils % (auto) 68.1 %; Platelet Count 235 K/uL (130-400); RDW Coefficient of Variation 13.4 % (11.5-14.5); Red Blood Count 5.38 M/uL (4.7-6.1); White Blood Count 8.07 K/uL (4.8-10.8)
[2018-09-05 13:19] LABS: BUN Creatinine Ratio 12.2 (10-20); Creatinine Clr Calc Pharmacy 105.3 ml/min; Est GFR (Non-African American) 88.9; Potassium 4.2 mmol/L (3.5-5.1)
[2018-09-05 13:27] LABS: Appearance Urine Clear (Clear); Bacteria Urine Automated Negative (Negative); Bilirubin Urine Negative (Negative); Blood Urine Negative (Negative); Color Urine Yellow; Glucose Urine UA Negative (Negative); Ketones Urine Negative (Negative); Leukocyte Esterase Urine Negative (Negative); Nitrite Urine Negative (Negative); Protein Urine 1+ (Negative); RBC Urine Automated 0-4 /hpf (0-4); Specific Gravity Urine 1.021 (1.000-1.030); Urobilinogen Urine Negative (Negative); pH Urine 6.5 (4.5-7.5)
[2018-10-02] MEDS ORDERED: LR 15ML/HR IV SCH (06:00)
[2018-10-02] MEDS ORDERED: CEFAZOLIN 3000MG 65 ML IV SCH (06:00)
[2018-10-02] MEDS ORDERED: BUPIVACAINE 0.5 % 5 MG/1 ML MPF 30ML VIAL ONE (07:00)
[2018-10-02] MEDS ORDERED: MIDAZOLAM HCL 1 MG/ML 2ML VIAL ONE (07:06)
[2018-10-02] MEDS ORDERED: fentaNYL citrate 100 MCG/2 ML VIAL ONE (07:06)
[2018-10-02] MEDS ORDERED: PROPOFOL IV EMULSION 10 MG/ML 20 ML VIAL IV ONE (07:07)
[2018-10-02] MEDS ORDERED: LIDOCAINE HCL 2% 2 ML VIAL/AMP(20MG/ML) INFIL ONE (07:07)
[2018-10-02] MEDS ORDERED: PROMETHAZINE HCL 6.25 MG in SODIUM CHLORIDE 0.9% 50 ML IV PRN (07:18)
[2018-10-02] MEDS ORDERED: ONDANSETRON INJ 2 MG/ML 2 ML VIAL IV PRN ×2 (07:18→12:00)
[2018-10-02] MEDS ORDERED: ePHEDrine sulfate 50 MG/ML AMP IV PRN (07:18)
[2018-10-02] MEDS ORDERED: HYDROmorphone INJ 2 MG/ML SYR/VIAL IV PRN (07:18)
[2018-10-02] MEDS ORDERED: ATROPINE SULFATE 0.1 MG/ML 10ML SYR IV PRN (07:18)
[2018-10-02] MEDS ORDERED: fentaNYL citrate 100 MCG/2 ML VIAL IV PRN (07:18)
--- NOTE | 2018-10-02 07:28 | History & Physical Bridge Note ---
Date of Service October 02, 2018 History & Physical Bridge Note I have examined the patient, reviewed the History & Physical and in the interval since the performance of the History & Physical I have noted the following changes of clinical significance: no changes noted
[2018-10-02] MEDS ORDERED: HYDROmorphone INJ 2 MG/ML SYR/VIAL ONE (08:27)
[2018-10-02] MEDS ORDERED: raNITIdine HCl 25 MG/ML VIAL IV ONE (08:33)
[2018-10-02] MEDS ORDERED: METOCLOPRAMIDE HCL INJ 5 MG/ML 2 ML VIAL ONE (08:33)
[2018-10-02] MEDS ORDERED: ONDANSETRON INJ 2 MG/ML 2 ML VIAL ONE (08:34)
[2018-10-02] MEDS ORDERED: DEXAMETHASONE SOD INJ 4 MG/ML VIAL ONE (08:34)
[2018-10-02] MEDS ORDERED: ROCURONIUM BROMIDE 10 MG/ML 5 ML VIAL ONE ×4 (08:34→08:41)
[2018-10-02] MEDS ORDERED: SUCCINYLCHOLINE CHLORIDE 20 MG/ML 10 ML VIAL ONE (08:34)
[2018-10-02] MEDS ORDERED: SODIUM CHLORIDE 0.9% INJ 10 ML VIAL ONE (08:40)
[2018-10-02] MEDS ORDERED: TISSEEL FIBRIN SEALANT 4ML TOP ONE (09:08)
[2018-10-02] MEDS ORDERED: SURGICEL ABSORB HEMOSTAT 2IN X 14IN TOP ONE (09:08)
[2018-10-02] MEDS ORDERED: LABETALOL HCL IV 5 MG/ML 20ML IV ONE (09:08)
[2018-10-02] MEDS ORDERED: NEOSTIGMINE METHYLSULFATE 5 MG/5 ML SYR ONE (09:26)
[2018-10-02] MEDS ORDERED: GLYCOPYRROLATE 0.2 MG/ML VIAL ONE (09:26)
[2018-10-02] MEDS ORDERED: FLOSEAL HEMOSTATIC MATRIX 10ML TOP ONE (09:27)
--- NOTE | 2018-10-02 10:18 | Operative Report ---
Post Operative Report Pre & Post Diagnosis Operation Date: 10/02/18 07:30 Pre-Op Diagnosis: Left Renal Mass Post-Op Diagnosis: Left Renal Mass Procedure Operation Date: 10/02/18 07:30 Actual Procedures p Left Hand Assisted Laparoscopic Nephrectomy(Left) - Madan Foster MD Surgeon John Foster MD Divider Operator GAYATRI Das Estimated Blood Loss 50 Findings Consistent with Post-Op Diagnosis Specimens left kidney Description of Procedure Patient was identified in the preoperative holding area, appropriate informed consents were reviewed and completed and the patient was transported to the operating suite. Upon arrival he received appropriate preoperative antibiotics in the form of Ancef. He additionally received a preoperative dose of subcutaneous heparin. He was placed in a [id number] left side up lateral decubitus position with the bed flexed. He was braced and padded appropriately. He underwent a sterile prep and drape before a left-sided Fay style incision was made in the left lower quadrant per after working her way through muscular layers, I exposed and sharply opened the peritoneum performing a finger swipe which revealed no evidence of adhesions or other abnormal I then expanded this incision through the peritoneum to accommodate a hand port. The GelPort was placed and utilizing a 12 mm lap port that was placed through the opening of the GelPort, insufflated the abdomen and performed a visual inspection with a laparoscope. Fortunately, his anterior abdominal wall was free of adhesions and I marked locations for 2 additional ports1 approximately 2 fingerbreadths below the costal margin of the rectus border and the other approximately 8 cm inferior to that. I withdrew the laparoscope and the port and I placed my hand through the GelPort guiding my additional assisting ports on to my hand. Then begin the lap scopic portion of the case-began by incising the white line of Toldt lateral to the inferior aspect of the kidney. I performed this with a harmonic scalpel. I was able to expose the anterior surface of Gerota's fascia and medialize the colon off of the kidney. Divided the splenorenal ligament some of the superior attachments of the kidney allowing the spleen to fall cephalad. A large mass was easily palpable through Gerotas fascia, and I used care to avoid incising Gerota's fascia over top of this mass. Inferior to the kidney I exposed the gonadal vein and ureter. I sharply dissected superficial tissues off the anterior surface of the gonadal until I encountered the renal vein. I dissected circumferentially around the vein exposing the adrenal vein and some of the adrenal gland. Before taking the vein, I began to separate the inferior/lateral aspect of the adrenal from the superior medial aspect of the kidney . I then placed a finger behind the renal hilum, lateral to the gonadal vein. I was able to control the entire vein and single renal artery with this finger creating a window superior to the vein and allowing myself to pass a stapler across both the vein and artery together. These were taken en bloc without any issue. I then utilized the harmonic scalpel to take some remaining nonvascular attachments including continued separation of the adrenal and kidney. I did fire one additional staple load between the kidney and adrenal before completing my dissection with a combination of harmonic scalpel and blunt dissection. Inferiorly, I was able to spare the gonadal entirely, but I did divide the lower cone of Gerota's utilizing the harmonic scalpel. I utilized the same device to divide the ureter. The specimen was then entirely freed and withdrawn through the hand port. I inspected for hemostasis which was excellent. As an additional precaution, we placed Tisseel against the hilar structures and renal bed. I guided the colon back into the left lateral aspect of the abdomen and pulled omentum over the entire surgical field. The 2- 12 mm residential living assistant ports were closed utilizing 0 Vicryl in [id number] fashion. Skin was closed with a 4-0 Monocryl and Dermabond. The Fay style incision was closed in 3 layers, all with 0 Vicryl reapproximating all muscular layers. And then reapproximated Karin's fascia before closing the skin with a 4-0 Monocryl. He was subsequently extubated and taken to the PACU in stable condition, there were no complications. Estimated blood loss 50 cc. I was assisted by Elisabeth Hood throughout the case from incision to closure. I attest to the content of the Intraoperative Record and any orders documented therein. Any exceptions are noted below.
[2018-10-02 10:47] LABS: Basophils # (auto) 0.04 K/uL (0-0.2); Basophils % (auto) 0.2 %; Eosinophils # (auto) 0.21 K/uL (0-0.5); Hematocrit (blood only) 43.7 % (42-52); Hemoglobin 15.1 g/dL (14.0-18.0); Immature Granulocytes # (auto) 0.21 K/uL (0.00-0.02); Lymphocytes # (auto) 1.72 K/uL (1.2-3.4); Lymphocytes % (auto) 8.2 %; Mean Corpuscular Volume 85.7 fL (80-100); Mean Platelet Volume 10.3 fL (7.4-10.4); Monocytes # (auto) 0.47 K/uL (0.11-0.59); Monocytes % (auto) 2.2 %; Neutrophils % (auto) 87.4 %; Platelet Count 263 K/uL (130-400); RDW Coefficient of Variation 13.1 % (11.5-14.5); RDW Standard Deviation 40.7 fL (36.4-46.3); White Blood Count 20.95 K/uL (4.8-10.8)
[2018-10-02 10:49] LABS: Mean Corpuscular Hgb Conc 34.6 g/dL (32-36)
--- NOTE | 2018-10-02 11:22 | Anesthesiology Progress Note ---
Date of Service October 02, 2018 Anesthesia Post Procedure Vital Signs Vital Signs: Temp Pulse Pulse Resp BP Pulse Ox 10/02/18 11:20 75 14 128/88 93 10/02/18 11:10 77 16 129/81 94 10/02/18 11:00 37 C 78 17 142/83 H 92 10/02/18 10:50 83 14 145/87 H 93 10/02/18 10:40 80 16 139/83 94 10/02/18 10:30 81 21 142/90 H 92 10/02/18 10:24 36.8 C 80 16 138/85 88 L 10/02/18 06:19 36.7 C 85 20 157/97 H 92 Pain Intensity Left Upper Chest: Pain Intensity: 2 Abdomen: Pain Intensity: 4 Transfer of Care Handoff Completed per policy Notes Mental Status: alert / awake / arousable Patient Amnestic to Procedure: Yes Nausea / Vomiting: adequately controlled Pain: adequately controlled Airway Patency, RR, SpO2: stable & adequate BP & HR: stable & adequate Hydration State: stable & adequate Anesthetic Complications: no major complications apparent Notes: Will place patient on continuous spo2 monitoring on floor
[2018-10-02 11:56] LABS: Calcium 8.7 mg/dl (8.5-10.1); Creatinine Clr Calc Pharmacy 64.4 ml/min; Est GFR (African American) 56.5; Est GFR (Non-African American) 48.8; Potassium 4.5 mmol/L (3.5-5.1)
[2018-10-02] MEDS ORDERED: MoRPHine SULFATE 4 MG/ML 1 ML CARP\\VIAL IV PRN (12:00)
[2018-10-02] MEDS ORDERED: OXYCODONE HCL IR 5 MG TAB (IMMEDIATE RELEASE) PO PRN (12:00)
[2018-10-02] MEDS ORDERED: CEFAZOLIN 3000MG/72.5 ML BAG IV SCH (12:00)
[2018-10-02] MEDS ORDERED: ACETAMINOPHEN 325 MG TAB PO PRN (12:00)
[2018-10-02] MEDS ORDERED: MoRPHine SULFATE 10 MG/ML CARP/VIAL IV PRN (12:00)
[2018-10-02] MEDS: LACTATED RINGER'S 1,000 ML IV SCH ×2 (13:15→20:00)
[2018-10-02 14:02] LABS: Partial Thromboplastin Time 25.8 Seconds (21.0-31.0); Prothrombin Time 10.7 Seconds (9.0-12.0)
[2018-10-02] MEDS: CEFAZOLIN 3,000 MG in DEXTROSE 5% 50 ML IV SCH ×2 (16:35→23:53)
[2018-10-02] MEDS: OXYCODONE HCL IR 5 MG TAB (IMMEDIATE RELEASE) PO PRN ×2 (18:02→23:32)
[2018-10-02] MEDS: HEPARIN SOD 5,000 UNIT/0.5 ML VIAL SQ SCH (20:00)
[2018-10-03] MEDS: LACTATED RINGER'S 1,000 ML IV SCH (03:53)
[2018-10-03] MEDS: OXYCODONE HCL IR 5 MG TAB (IMMEDIATE RELEASE) PO PRN ×2 (03:56→08:38)
[2018-10-03 07:07] LABS: Basophils # (auto) 0.02 K/uL (0-0.2); Basophils % (auto) 0.1 %; Eosinophils # (auto) 0.02 K/uL (0-0.5); Eosinophils % (auto) 0.1 %; Hemoglobin 13.9 g/dL (14.0-18.0); Immature Granulocytes # (auto) 0.07 K/uL (0.00-0.02); Immature Granulocytes % (auto) 0.4 %; Lymphocytes # (auto) 1.83 K/uL (1.2-3.4); Lymphocytes % (auto) 10.6 %; Mean Corpuscular Hgb Conc 33.9 g/dL (32-36); Mean Platelet Volume 10.2 fL (7.4-10.4); Monocytes # (auto) 1.54 K/uL (0.11-0.59); Monocytes % (auto) 8.9 %; Neutrophils # (auto) 13.79 K/uL (1.4-6.5); Neutrophils % (auto) 79.9 %; Platelet Count 246 K/uL (130-400); RDW Coefficient of Variation 12.9 % (11.5-14.5); RDW Standard Deviation 41.6 fL (36.4-46.3); Red Blood Count 4.71 M/uL (4.7-6.1); White Blood Count 17.27 K/uL (4.8-10.8)
[2018-10-03 07:39] LABS: BUN Creatinine Ratio 12.3 (10-20); Calcium 8.3 mg/dl (8.5-10.1); Creatinine Clr Calc Pharmacy 59.9 ml/min; Est GFR (African American) 51.8; Est GFR (Non-African American) 44.7; Potassium 4.1 mmol/L (3.5-5.1)
--- NOTE | 2018-10-03 07:49 | Urology Progress Note ---
Date of Service October 03, 2018 Assessment & Plan (1) Renal mass: - progressing appropriately - advance diet - ambulate - d/c home if he continues to do well Subjective Did very well overnight modest pain ambulated voiding hungry Physical Exam Physical Exam: incisions appropriate urine clear Results & Data Vital Signs (Past 12 Hours) Vital Signs Temp Pulse Resp BP Pulse Ox 10/03/18 03:54 36.5 C 86 18 148/81 H 94
[2018-10-03] MEDS: HEPARIN SOD 5,000 UNIT/0.5 ML VIAL SQ SCH (08:41)
[2018-10-03] MEDS ORDERED: AMLODIPINE BESYLATE 5 MG TAB PO SCH (09:00)
[2018-10-03] MEDS ORDERED: hydroCHLOROthiazide 25 MG TAB PO SCH (09:00)
--- NOTE | 2018-10-03 09:35 | Urology Progress Note ---
Date of Service October 03, 2018 Assessment & Plan (1) Renal mass: POD #1 s/p left HALN Tolerating PO, doing well at this time. Feels he is ready for discharge. Discharge instructions and expected clinical course reviewed. All questions answered, pt verbalizes understanding. Ready for discharge. Subjective Pt re-evaluated mid-morning. Friend at bedside. He was able to tolerate regular breakfast without issue. Sitting at the side of the bed. NO nausea/vomiting. Pain currently controlled with PO options. Incisions remain C/D/I. Voiding spontaneosly without difficulty. Results & Data Vital Signs (Past 12 Hours) Vital Signs Temp Pulse Pulse Resp BP BP Pulse Ox 10/03/18 09:25 36.7 C 86 17 152/90 H 125/71 90 10/03/18 07:58 36.7 C 72 17 152/90 H 90 10/03/18 03:54 36.5 C 86 18 148/81 H 94
--- NOTE | 2018-10-05 11:49 | Discharge Summary ---
Date of Service October 05, 2018 Principal Diagnosis renal cell carcinoma Discharge Data Allergies Allergy/AdvReac Type Severity Reaction Status Date / Time milk Allergy Unknown Verified 10/02/18 06:09 chocolate flavor Allergy Verified 10/02/18 06:09 No Known Drug Allergies Allergy Verified 10/02/18 06:09 Procedures Performed Operation Date: 10/02/18 07:30 Actual Procedures p Left Hand Assisted Laparoscopic Nephrectomy(Left) - Madan Foster MD Hospital Course (1) Clear cell renal cell carcinoma: pt progressed well overnight after his surgery -tolerating a diet -ambulating -voiding -sent home in stable condition Total Time Total Time Spent Total Time Spent (In Minutes): 20 Total Time Includes: Examination of the Patient, Discharge Planning, Medication Reconciliation and Communication With Other Providers Discharge Plan Discharge Items Patient Disposition: Home - Self-Care Reason For Visit: Left Renal Mass Discharge Diagnosis: left renal mass Discharge Goals: Improve disease control and Learn about illness Activity: Resume your previous activity Lifting: No more than 25 pounds Bathing: Keep incision dry Bathing Comment: okay to shower tomorrow, no tub baths or soaking Sexual Activity: Wait until after follow-up appointment Exercise/Sports: Rest today Driving/Machine Use: Resume 1 day after discharge Driving/Machine Use Comment: Please do not drive while taking prescription pain control Non-emergency contact: Urologist Call non-emergency contact if: your pain is not controlled, your pain is worsening and your temperature is above 101 Follow-up/Referrals: Rosa Isela Rodriguez CRNP, MS, [employer]ING [employer]ACH[employer] [Primary Care Provider] - Madan Foster MD [Physician] - 10/22/18 3:25 am Diet: Regular Addtl Provider Instructions: Please take all medications as prescribed and keep all follow-ups as scheduled. Please call our office at [phone] with any questions, concerns or need to reschedule appointments for any reason. We are happy to assist you. Recovering at home: We recommend having someone with you for the first few days after surgery to help care for you. It is okay to shower tomorrow. Please avoid swimming, bathing or using hot tub until incisions are well healed. Avoid driving until you are not requiring pain medication any further. Walk at least a few times a day. Increase your distance, as you feel able. Stairs in your home are okay. Please avoid strenuous or sexual activity until your follow-up. We recommend using stool softener (i.e. Colace) to prevent constipation and straining, especially the first two weeks post operatively. Call [facility] at [phone] if you experience: Chest pain or trouble breathing (call [phone] or go to the hospital). Fever of 101F or higher Symptoms of infection at incision site, including redness or swelling, warmth, or bad-smelling drainage Pain that is not controlled with medicines Prescriptions: New oxycodone-acetaminophen [Percocet] 5-325 mg tablet 1 tab PO TID PRN (Reason: pain) Qty: 14 RF: 0 docusate sodium [Colace] 100 mg capsule 100 mg PO BID Qty: 60 RF: 0 Continued amlodipine 10 mg Tablet 10 mg PO DAILY RF: 0 hydrochlorothiazide 12.5 mg Tablet 12.5 mg PO DAILY RF: 0 Stand-Alone Forms: [place], [facility]/Other Patient Handouts: Surgery Prevent DVT After Discharge Orders: Discharge Order (Routine); Ordered 10/03/18 Ordered By: Elisabeth Hood Admission Data Admit Date/Time: 10/02/18 10:22 Attending Provider: Madan Foster Admit Provider: Madan Foster Primary Care Provider: Rosa Isela Rodriguez Service: Surgical Services Other Interventions: Discharge Summary Assessment (RN) Last Done: 10/03/18 09:25 DC Date/Time DO NOT enter until pt leaves facility: 10/03/18 09:56
== END 2018-10-03 09:56 | disposition home or self-care (01) | DRG 657 ==
LOC: ASU 05:44 → 3N 10:22

== ENCOUNTER 2021-02-08 12:41 | Inpatient (IN) ==
[2021-02-08] MEDS ORDERED: dexAMETHasone**PF** 10 MG/ML VIAL IV ONE (13:11)
[2021-02-08] MEDS ORDERED: SODIUM CHLORIDE 0.9% 1000ML 500 ML IV ONE (13:11)
[2021-02-08] MEDS ORDERED: ALBUT/IPRATROP 3MG/0.5MG NEB 3 ML VIAL NEB STA (13:11)
[2021-02-08] MEDS ORDERED: ACETAMINOPHEN 500 MG TAB PO STA (13:15)
--- NOTE | 2021-02-08 13:16 | Emergency Department Note ---
Impression & Plan Hypoxia, Pneumonia, SOB (shortness of breath), COVID-19 ED Provider Note NAME: XIAO OSHEA AGE: 55 SEX: M : 1965 ARRIVES VIA: Ambulance INFORMANT: [Patient][ems] ED PROVIDER(S): [Avinash Ramsay MD] CHIEF COMPLAINT: Short of breath HISTORY OF PRESENT ILLNESS: The patient is a 55-year-old male who presents to the ER with shortness of breath. He has had a week of flulike symptoms. His is actually admitted to the hospital here at [facility] with COVID-19. The patient himself is not vaccinated against COVID-19 or influenza. The patient has had some body aches, a cough, some shortness of breath and some diarrhea. He denies vomiting. The patient began using his 's oxygen at home because his saturations on pulse ox were in the 70s. As per EMS, the patient was febrile with a low O2 saturation. He was brought to the hospital for evaluation. The patient believes he really felt much more short of breath today. REVIEW OF SYSTEMS: See HPI for pertinent positives and negatives. A total of ten systems were rev iewed and were otherwise negative. PMHx/PSHx: See Below SOCIAL HISTORY: See Below. PHYSICAL EXAM: GENERAL: Patient is in no acute distress. HEENT: No acute trauma, normocephalic atraumatic, mucous membranes moist, no nasal congestion, no scleral icterus. NECK: No stridor, no adenopathy, no meningismus, trachea is midline. LUNGS: Diminished breath sounds bilaterally, wheezing with some crackles bilaterally. He does have an increased respiratory rate. No obvious respiratory distress. HEART: Without murmurs gallops or rubs, regular rate and rhythm. ABDOMEN: Soft, nontender, bowel sounds positive, no hernias, no peritonitis. EXTREMITIES: No cyanosis or edema, full range of motion of all the joints without pain or difficulty, no signs for acute trauma. NEUROLOGIC: Oriented x 3, no acute motor or sensory deficits, no focal weakness. SKIN: No rash, no jaundice, slightly diaphoretic. DIFFERENTIAL DIAGNOSIS: Reactive airway disease, pneumonia, pneumothorax, influenza, COVID-19, COPD, CHF, infection, cardiac ischemia, pulmonary embolism, bronchitis, musculoskeletal, gastrointestinal, as well as other pathologies. EMERGENCY DEPARTMENT COURSE/PROCEDURES: ECG: Indication was shortness of breath. The ECG shows a normal sinus rhythm with a rate of 85. There is a potential old septal infarct. No ST elevation, no PVCs. The QTc is 416. Continuous Cardiac Monitoring: An order was placed for continuous cardiac monitoring. The monitor shows a rate of 96 with normal sinus rhythm. Critical Care Note: I have personally spent 46 minutes of critical care time in the direct management of this patient. This includes bedside care, interpretation of diagnostic studies, and testing, discussion with consultants, patient, and family members, and other required patient management activities. This 46 minutes is in excess of all separately billable procedures. MEDICAL DECISION MAKING: There is no leukocytosis or concerning anemia. Platelet count is 181. No coa gulopathy. Sodium was somewhat low at 130, no renal failure. Lactic acid level was not elevated making severe sepsis less likely. Magnesium a bit low at 1.7. No concerning liver enzyme elevation. ECG shows a normal sinus rhythm, no acute ischemia. Cardiac enzyme testing x1 is not consistent with acute cardiac injury. Chest film does show a bilateral viral pneumonia. No pneumothorax. Covid testing returned positive. Influenza and RSV testing returned negative. The patient presents hypoxic. He is not vaccinated for COVID-19. He was found to be hypoxic and has Covid pneumonia. He was aggressively managed. Patient was given IV saline, IV magnesium, IV Decadron and a DuoNeb. He was given oral Tylenol. He was maintained on oxygen supplementation. Patient is aware of his findings. He does require a hospital stay. I did speak with the case consultant. The on-call hospitalist was consulted. 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 following with sleep medicine. Venous insufficiency [place]ca Surgical History H/O radical nephrectomy Left kidney removed History of dental surgery Family History Mother Leukemia Father Mesothelioma Denies family history of Ovarian cancer Prostate cancer Myocardial infarction Breast cancer Colorectal cancer Social History Smoking Status: Never smoker Cigarettes Per Day: QUIT 5 YEARS AGO; RARE CIGAR USE; Second Hand Exposure: Yes; Hx Alcohol Use: Yes Alcohol type: beer and hard liquor Hx Substance Use: No Preferred Language: Sri Lankan Communication Ability: Effective Visual Impairment: No Limitations Hearing Ability: Normal [employer] Required: No Beliefs That Will Affect Care: None marital status: Single Current Living Situation: Significant Other current occupational status: employed 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 Feels Safe at Home: Yes Childhood Exposure to Second-Hand Smoke: Yes Dental Care, Regularly: Yes Physical Activity Frequency: 1-2 Times per Week Seatbelt Use: always Assistive Devices: Glasses Allergies Allergies Allergy/AdvReac Type Severity Reaction Status Date / Time lisinopril Allergy Severe angioedema Verified 02/08/21 14:15 milk Allergy Unknown Verified 02/08/21 14:15 chocolate flavor Allergy Verified 02/08/21 14:15 peanut Allergy Verified 02/08/21 14:15 Home Meds Previous Rx's Medication Instructions Recorded gabapentin 100 mg capsule 100 - 200 mg PO HS PRN #60 cap 04/29/20 amlodipine 5 mg tablet 5 mg PO BID #180 tab 11/17/20 spironolactone 25 mg tablet 25 mg PO DAILY #30 tab 02/01/21 Results & Data (ED) Vital Signs Vital Signs - 24 hr 02/08/21 13:00 02/08/21 13:20 02/08/21 13:55 Temperature 37.3 C Temperature Source Oral Pulse Rate 96 H Pulse Rate [Apical] Respiratory Rate 24 Respiratory Depth Blood Pressure 119/78 Blood Pressure [Right Arm] Blood Pressure Mean 91 Blood Pressure Mean [Right Arm] Blood Pressure Position [Right Arm] Pulse Oximetry 88 L 91 93 Oxygen Delivery Method Room Air Nasal Cannula Nasal Cannula Oxygen Flow Rate 3 3 Sepsis Recent Fever Within 48 Hours No Sepsis New/Unexplained Change in Mental Status No Sepsis Action Taken by Nursing No Action Required 02/08/21 14:14 02/08/21 15:22 02/08/21 16:00 Temperature Temperature Source Pulse Rate 75 Pulse Rate [Apical] 74 78 Respiratory Rate 22 20 20 Respiratory Depth Normal Blood Pressure 109/66 Blood Pressure [Right Arm] 117/55 L 117/71 Blood Pressure Mean 80 Blood Pressure Mean [Right Arm] 75 86 Blood Pressure Position [Right Arm] Lying Pulse Oximetry 94 94 93 Oxygen Delivery Method Nasal Cannula Oxymask Oxymask Oxygen Flow Rate 3 8 Sepsis Recent Fever Within 48 Hours Sepsis New/Unexplained Change in Mental Status Sepsis Action Taken by Snf Medications Current Medication List: was personally reviewed by me Laboratory Data Attestation: I reviewed the patient's lab results. Result diagrams: 02/08/21 12:35 02/08/21 12:35 Lab Results 02/08/21 02/08/21 02/08/21 Range/Units 12:35 12:35 12:35 WBC 5.31 (4.8-10.8) K/uL RBC 4.45 L (4.7-6.1) M/uL Hgb 13.1 L (14.0-18.0) g/dL Hct 37.2 L (42-52) % MCV 83.6 (80-100) fL MCH 29.4 (25-34) pg MCHC 35.2 (32-36) g/dL RDW Std Deviation 40.1 (36.4-46.3) fL RDW Coeff of Geri 13.3 (11.5-14.5) % Plt Count 181 (130-400) K/uL MPV 10.1 (7.4-10.4) fL Immature Gran % (Auto) 0.4 % Neut % (Auto) 74.8 % Lymph % (Auto) 16.9 % [place] % (Auto) 7.5 % Eos % (Auto) 0.0 % Baso % (Auto) 0.4 % Neut # (Auto) 3.97 (1.4-6.5) K/uL Lymph # (Auto) 0.90 L (1.2-3.4) K/uL [place] # (Auto) 0.40 (0.11-0.59) K/uL Eos # (Auto) 0.00 (0-0.5) K/uL Baso # (Auto) 0.02 (0-0.2) K/uL Immature Gran # (Auto) 0.02 (0.00-0.02) K/uL PT 10.9 (9.0-12.0) Seconds INR 1.1 (0.9-1.1) APTT 33.5 H (21.0-31.0) Seconds PTT Ratio 1.3 D-Dimer (0-500) ug/L FEU Sodium 130 L (136-145) mmol/L Potassium 4.2 (3.5-5.1) mmol/L Chloride 98 (98-107) mmol/L Carbon Dioxide 24 (21-32) mmol/L Anion Gap 8.0 (3-11) BUN 12 (7-18) mg/dl Creatinine 1.38 (0.6-1.4) mg/dl Est Cr Clr Drug Dosing 75.4 ml/min Est GFR ( Amer) 67.2 ml/min Est GFR (Non-Af Amer) 58.0 ml/min BUN/Creatinine Ratio 8.4 L (10-20) Glucose 228 H (70-99) mg/dl POC Glucose (70-99) mg/dl Lactate (0.4-2.0) mmol/L Calcium 7.9 L (8.5-10.1) mg/dl Magnesium 1.7 L (1.8-2.4) mg/dl Total Bilirubin 0.6 (0.2-1) mg/dl AST 47 H (15-37) U/L ALT 44 (12-78) Alkaline Phosphatase 65 (45-117) U/L Troponin I 0.026 (0-0.045) ng/ml C-Reactive Protein 3.98 H (0-0.29) mg/dl Total Protein 6.9 (6.4-8.2) gm/dl Albumin 2.6 L (3.4-5.0) gm/dl Globulin 4.3 H (2.5-4.0) gm/dl Albumin/Globulin Ratio 0.6 L (0.9-2) Procalcitonin (0-0.5) ng/ml SARS-CoV-2 (PCR) (Negative) Influenza Type A (PCR) (Neg) Influenza Type B (PCR) (Neg) RSV (RT-PCR) (Neg) 02/08/21 02/08/21 02/08/21 Range/Units 12:35 12:35 13:50 WBC (4.8-10.8) K/uL RBC (4.7-6.1) M/uL Hgb (14.0-18.0) g/dL Hct (42-52) % MCV (80-100) fL MCH (25-34) pg MCHC (32-36) g/dL RDW Std Deviation (36.4-46.3) fL RDW Coeff of Geri (11.5-14.5) % Plt Count (130-400) K/uL MPV (7.4-10.4) fL Immature Gran % (Auto) % Neut % (Auto) % Lymph % (Auto) % [place] % (Auto) % Eos % (Auto) % Baso % (Auto) % Neut # (Auto) (1.4-6.5) K/uL Lymph # (Auto) (1.2-3.4) K/uL [place] # (Auto) (0.11-0.59) K/uL Eos # (Auto) (0-0.5) K/uL Baso # (Auto) (0-0.2) K/uL Immature Gran # (Auto) (0.00-0.02) K/uL PT (9.0-12.0) Seconds INR (0.9-1.1) APTT (21.0-31.0) Seconds PTT Ratio D-Dimer 900 H* (0-500) ug/L FEU Sodium (136-145) mmol/L Potassium (3.5-5.1) mmol/L Chloride (98-107) mmol/L Carbon Dioxide (21-32) mmol/L Anion Gap (3-11) BUN (7-18) mg/dl Creatinine (0.6-1.4) mg/dl Est Cr Clr Drug Dosing ml/min Est GFR ( Amer) ml/min Est GFR (Non-Af Amer) ml/min BUN/Creatinine Ratio (10-20) Glucose (70-99) mg/dl POC Glucose (70-99) mg/dl Lactate (0.4-2.0) mmol/L Calcium (8.5-10.1) mg/dl Magnesium (1.8-2.4) mg/dl Total Bilirubin (0.2-1) mg/dl AST (15-37) U/L ALT (12-78) Alkaline Phosphatase (45-117) U/L Troponin I (0-0.045) ng/ml C-Reactive Protein (0-0.29) mg/dl Total Protein (6.4-8.2) gm/dl Albumin (3.4-5.0) gm/dl Globulin (2.5-4.0) gm/dl Albumin/Globulin Ratio (0.9-2) Procalcitonin 0.17 (0-0.5) ng/ml SARS-CoV-2 (PCR) POSITIVE A* (Negative) Influenza Type A (PCR) Negative (Neg) Influenza Type B (PCR) Negative (Neg) RSV (RT-PCR) Negative (Neg) 02/08/21 02/08/21 Range/Units 13:56 16:14 WBC (4.8-10.8) K/uL RBC (4.7-6.1) M/uL Hgb (14.0-18.0) g/dL Hct (42-52) % MCV (80-100) fL MCH (25-34) pg MCHC (32-36) g/dL RDW Std Deviation (36.4-46.3) fL RDW Coeff of Geri (11.5-14.5) % Plt Count (130-400) K/uL MPV (7.4-10.4) fL Immature Gran % (Auto) % Neut % (Auto) % Lymph % (Auto) % [place] % (Auto) % Eos % (Auto) % Baso % (Auto) % Neut # (Auto) (1.4-6.5) K/uL Lymph # (Auto) (1.2-3.4) K/uL [place] # (Auto) (0.11-0.59) K/uL Eos # (Auto) (0-0.5) K/uL Baso # (Auto) (0-0.2) K/uL Immature Gran # (Auto) (0.00-0.02) K/uL PT (9.0-12.0) Seconds INR (0.9-1.1) APTT (21.0-31.0) Seconds PTT Ratio D-Dimer (0-500) ug/L FEU Sodium (136-145) mmol/L Potassium (3.5-5.1) mmol/L Chloride (98-107) mmol/L Carbon Dioxide (21-32) mmol/L Anion Gap (3-11) BUN (7-18) mg/dl Creatinine (0.6-1.4) mg/dl Est Cr Clr Drug Dosing ml/min Est GFR ( Amer) ml/min Est GFR (Non-Af Amer) ml/min BUN/Creatinine Ratio (10-20) Glucose (70-99) mg/dl POC Glucose 246 H (70-99) mg/dl Lactate 1.2 (0.4-2.0) mmol/L Calcium (8.5-10.1) mg/dl Magnesium (1.8-2.4) mg/dl Total Bilirubin (0.2-1) mg/dl AST (15-37) U/L ALT (12-78) Alkaline Phosphatase (45-117) U/L Troponin I (0-0.045) ng/ml C-Reactive Protein (0-0.29) mg/dl Total Protein (6.4-8.2) gm/dl Albumin (3.4-5.0) gm/dl Globulin (2.5-4.0) gm/dl Albumin/Globulin Ratio (0.9-2) Procalcitonin (0-0.5) ng/ml SARS-CoV-2 (PCR) (Negative) Influenza Type A (PCR) (Neg) Influenza Type B (PCR) (Neg) RSV (RT-PCR) (Neg) Administered Medications Discontinued Medications Acetaminophen (Acetaminophen 500 Mg Tab) 1,000 mg PO NOW STA Stop: 02/08/21 13:16 Last Admin: 02/08/21 14:06 Dose: Not Given Documented by: [id number] Albuterol (Albut/Ipratrop 3mg/0.5mg Neb 3 Ml Vial) 3 ml NEB NOW STA Stop: 02/08/21 13:12 Last Admin: 02/08/21 14:10 Dose: 3 ml Documented by: [id number] Dexamethasone Sodium Phosphate (DexamethasonePf 10 Mg/Ml Vial) 6 mg IV NOW ONE Stop: 02/08/21 13:12 Last Admin: 02/08/21 14:11 Dose: 6 mg Documented by: [id number] Sodium Chloride (Nss 1000ml) 500 mls @ 999 mls/hr IV .Q31M ONE Stop: 02/08/21 13:41 Last Infusion: 02/08/21 15:21 Dose: 0 mls/hr Documented by: [id number] Admin: 02/08/21 14:10 Dose: 999 mls/hr Documented by: [id number] Magnesium Sulfate/Dextrose (Magnesium Sulfate / D5w) 1 gm in 100 mls @ 100 mls/hr IV NOW STA Stop: 02/08/21 14:38 Last Infusion: 02/08/21 15:21 Dose: 0 mls/hr Documented by: [id number] Admin: 02/08/21 14:12 Dose: 100 mls/hr Documented by: [id number] Insulin Aspart (Insulin Aspart Per Unit) 2 units SC ONE STA Stop: 02/08/21 15:49 Last Admin: 02/08/21 16:15 Dose: 2 units Documented by: [id number] Cosigned by: [id number] Imaging Data Radiologist's Impression: Chest X-Ray 02/08/21 13:12 XR chest 1V portable CLINICAL HISTORY: SOB. COMPARISON STUDY: No previous studies for comparison. TECHNIQUE: 1 view of the chest FINDINGS: Single frontal view of the chest demonstrates the cardiomediastinal silhouette to be within normal limits. Patchy interstitial and alveolar opacities are present bilaterally. The findings are most characteristic of a viral type pneumonitis. Covid 19 pneumonia should be excluded. There is no evidence for pleural effusion. There is no evidence for vascular congestion. There is no acute osseous pathology. IMPRESSION: Patchy interstitial and alveolar opacities bilaterally, right greater than left characteristic of a viral type pneumonitis and probable Covid 19 pneumonia. ACT 112: Negative or not required by law. Electronically signed by: Alvaro Covarruibas M.D. 02/08/2021 1:36 PM Discharge Plan Visit Data Chief Complaint: Shortness of Breath/Dyspnea Stated Complaint: sob ED Provider: Avinash Ramsay Discharge Problem: Hypoxia, Pneumonia, SOB (shortness of breath), COVID-19 Patient Disposition: Admitted As Inpatient Condition: Fair Forms Stand Alone Forms: My [facility] [place] Prescriptions Prescriptions: No Action amlodipine 5 mg tablet 5 mg PO BID Qty: 180 RF: 0 spironolactone 25 mg tablet 25 mg PO DAILY Qty: 30 RF: 6 gabapentin 100 mg capsule 100 - 200 mg PO HS PRN (Reason: pain) Qty: 60 RF: 5 Referrals Referrals: Serina Yancey MD [Primary Care Provider] -
[2021-02-08 13:27] LABS: Basophils # (auto) 0.02 K/uL (0-0.2); Basophils % (auto) 0.4 %; Hematocrit (blood only) 37.2 % (42-52); Hemoglobin 13.1 g/dL (14.0-18.0); Immature Granulocytes # (auto) 0.02 K/uL (0.00-0.02); Immature Granulocytes % (auto) 0.4 %; Lymphocytes % (auto) 16.9 %; Mean Corpuscular Hemoglobin 29.4 pg (25-34); Mean Corpuscular Hgb Conc 35.2 g/dL (32-36); Mean Corpuscular Volume 83.6 fL (80-100); Mean Platelet Volume 10.1 fL (7.4-10.4); Monocytes % (auto) 7.5 %; Neutrophils # (auto) 3.97 K/uL (1.4-6.5); Neutrophils % (auto) 74.8 %; Platelet Count 181 K/uL (130-400); RDW Coefficient of Variation 13.3 % (11.5-14.5); RDW Standard Deviation 40.1 fL (36.4-46.3); Red Blood Count 4.45 M/uL (4.7-6.1); White Blood Count 5.31 K/uL (4.8-10.8)
[2021-02-08 13:33] LABS: INR 1.1 (0.9-1.1); Partial Thromboplastin Ratio 1.3; Partial Thromboplastin Time 33.5 Seconds (21.0-31.0); Prothrombin Time 10.9 Seconds (9.0-12.0)
[2021-02-08 13:34] LABS: Albumin Level 2.6 gm/dl (3.4-5.0); BUN Creatinine Ratio 8.4 (10-20); C Reactive Protein 3.98 mg/dl (0-0.29); Calcium 7.9 mg/dl (8.5-10.1); Creatinine Clr Calc Pharmacy 75.4 ml/min; Est GFR (African American) 67.2 ml/min; Magnesium 1.7 mg/dl (1.8-2.4); Potassium 4.2 mmol/L (3.5-5.1)
--- NOTE | 2021-02-08 13:38 | XRay Report ---
XR chest 1V portable CLINICAL HISTORY: SOB. COMPARISON STUDY: No previous studies for comparison. TECHNIQUE: 1 view of the chest FINDINGS: Single frontal view of the chest demonstrates the cardiomediastinal silhouette to be within normal li mits. Patchy interstitial and alveolar opacities are present bilaterally. The findings are most adis cteristic of a viral type pneumonitis. Covid 19 pneumonia should be excluded. There is no evidence fo r pleural effusion. There is no evidence for vascular congestion. There is no acute osseous pathology . IMPRESSION: Patchy interstitial and alveolar opacities bilaterally, right greater than left character istic of a viral type pneumonitis and probable Covid 19 pneumonia. ACT 112: Negative or not required by law. Electronically signed by: Alvaro Covarrubias M.D. 02/08/2021 1:36 PM
[2021-02-08 13:39] LABS: Albumin Globulin Ratio 0.6 (0.9-2); Bilirubin,Total 0.6 mg/dl (0.2-1); Globulin 4.3 gm/dl (2.5-4.0); Total Protein 6.9 gm/dl (6.4-8.2); Troponin I 0.026 ng/ml (0-0.045)
[2021-02-08] MEDS ORDERED: MAGNESIUM SULFATE / D5W 1 GM/100 ML BAG IV STA (13:39)
[2021-02-08 14:56] LABS: Influenza A virus by PCR Negative (Neg); Influenza B virus by PCR Negative (Neg); RSV by PCR Negative (Neg)
--- NOTE | 2021-02-08 15:33 | History & Physical Report ---
Date of Service February 08, 2021 Assessment & Plan (1) Pneumonia due to COVID-19 virus: Plan: Unvaccinated Day 10 of illness on admission - Remdesivir deferred No prior treatment Started on Dexamethasone 6mg IV Prone as able CRP with AM labs as doesn't meet criteria for baricitinib currently but suspect he is going to get worse before he gets better (2) Acute respiratory failure with hypoxia: Plan: Secondary to COVID-19 as above Aim O2 sats > 90% (3) Severe obstructive sleep apnea: Plan: CPAP HS and must wear while napping (4) HTN, goal below 130/80: Plan: Hold amlodipine and spironolactone as he has not been taking this (5) Clear cell renal cell carcinoma: Plan: s/p left radical nephrectomy (6) Hyperglycemia: Plan: Patient denies diabetes. Most recent HbA1C 5.5 in 11/2017 although unknown if he was on medications at that time. Glucose 228 on admission. Novolog 2 units SQ now Consult pharmacy for glycemic control in setting of dexamethasone use Plan: VTE Prophylaxis - Lovenox 40mg SQ BID Diet - T2DM Disposition - COVID isolation precautions, admit to med/surg Admission and Anticipated Discharge Date Admission Date: February 08, 2021 History of Present Illness Chief Complaint: Shortness of breath Primary Care Provider: Serina Yancey MD Evangelist Ku is a 55 year old male who presents to the ER with shortness of breath. He is not vaccinated for COVID-19. He reports being unwell since 01/30 with loose stools, generalized myalgias and shortness of breath. Non-productive cough. No chest or abdominal pain. he has not received any medical treatment thus far. He reports exposure to his who is COVID +ve and also hospitalized at [facility] (Shavon Shah). He has not taken his medications for a number of days. Former smoker, quit 5-6 years ago, previously 1 pack/day. Rare alcohol. In the ER; SARS COV-2 PCR positive. CXR concerning for viral pneumonia. O2 sats 88% on room air which improved to 94% on 3LPM O2. He appears to desaturate more than this when sleeping and was recently diagnosed with severe RAD awaiting further workup to get his CPAP machine. CRP 3.98. Na level 130. Mg level 1.7. He was given dexamethasone 6mg IV for COVID-19 treatment. NSS 500ml bolus due to hypovolemic (dehydrated) hyponatremia, duoneb (he did not notice a significant difference in his breathing with this) and acetaminophen. Glucose 228 on admission however he denies any diabetes and is not on any specific medications for this. Allergies Allergy/AdvReac Type Severity Reaction Status Date / Time lisinopril Allergy Severe angioedema Verified 02/08/21 14:15 milk Allergy Unknown Verified 02/08/21 14:15 chocolate flavor Allergy Verified 02/08/21 14:15 peanut Allergy Verified 02/08/21 14:15 Home Medications Medication Instructions Recorded Confirmed Type gabapentin 100 mg capsule 100 - 200 mg PO HS PRN #60 cap 04/29/20 02/08/21 Rx amlodipine 5 mg tablet 5 mg PO BID #180 tab 11/17/20 02/08/21 Rx spironolactone 25 mg tablet 25 mg PO DAILY #30 tab 02/01/21 02/08/21 Rx Past Med/Surg History Medical History Abnormal EKG Benign prostatic hyperplasia with urinary obstruction Clear cell renal cell carcinoma 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 following with sleep medicine. Venous insufficiency [place] Surgical History H/O radical nephrectomy Left kidney removed History of dental surgery Family History Mother Leukemia Father Mesothelioma Denies family history of Ovarian cancer Prostate cancer Myocardial infarction Breast cancer Colorectal cancer Social History Smoking Status: Never smoker Cigarettes Per Day: QUIT 5 YEARS AGO; RARE CIGAR USE; Second Hand Exposure: Yes; Hx Alcohol Use: Yes Alcohol type: beer and hard liquor Hx Substance Use: No Preferred Language: Upper Sorbian Communication Ability: Effective Visual Impairment: No Limitations Hearing Ability: Normal Complex Manager Required: No Beliefs That Will Affect Care: None marital status: Single Current Living Situation: Significant Other current occupational status: employed 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 Feels Safe at Home: Yes Childhood Exposure to Second-Hand Smoke: Yes Dental Care, Regularly: Yes Physical Activity Frequency: 1-2 Times per Week Seatbelt Use: always Assistive Devices: Glasses Review of Systems Review of Systems: All systems reviewed & are unremarkable except as noted in HPI & below Physical Exam Constitutional: well developed and + morbidly obese; + not well nourished and no acute distress Eyes: + anicteric sclerae; normal pupil size ENMT: Mouth: + dry oral mucous membranes Neck: trachea midline, no thyromegaly + short neck and + thick neck Respiratory: + respiratory distress, + labored breathing, + retractions, + uses accessory muscles, + cough, able to speak in complete sentences and + tachypneic; + abnormal respiratory effort, normal respiratory pattern and expiratory phase not prolonged Auscultation: + rhonchi (bilateral anteriorly, good air entry to bases); no diminished lung sounds, no crackles and no wheezes Cardiovascular: Rate/Rhythm: regular rhythm and + tachycardic Heart Sounds: + murmur (systolic 2/6 RUSB) Extremities: normal capillary refill and + pedal edema (trace ankle b/l equal); no calf tenderness Gastrointestinal (Abdomen): normal bowel sounds, soft, nontender, no hepatosplenomegaly Musculoskeletal: no cyanosis or clubbing, extremities motor strength 5/5 Skin: no rashes, warm and dry Neurologic: moves all extremities and awake; not confused Psychiatric: A+Ox3, euthymic affect Genitourinary: no CVA tenderness Results & Data Results & Data ([facility]) Vital Signs (Past 12 Hours) Vital Signs Temp Pulse Pulse Resp BP BP Pulse Ox 02/08/21 14:14 74 22 117/55 L 94 02/08/21 13:55 93 02/08/21 13:20 91 02/08/21 13:00 37.3 C 96 H 24 119/78 88 L Laboratory Results Abnormal lab results 02/08/21 02/08/21 02/08/21 Range/Units 12:35 12:35 12:35 RBC 4.45 L (4.7-6.1) M/uL Hgb 13.1 L (14.0-18.0) g/dL Hct 37.2 L (42-52) % Lymph # (Auto) 0.90 L (1.2-3.4) K/uL APTT 33.5 H (21.0-31.0) Seconds Sodium 130 L (136-145) mmol/L BUN/Creatinine Ratio 8.4 L (10-20) Glucose 228 H (70-99) mg/dl Calcium 7.9 L (8.5-10.1) mg/dl Magnesium 1.7 L (1.8-2.4) mg/dl AST 47 H (15-37) U/L C-Reactive Protein 3.98 H (0-0.29) mg/dl Albumin 2.6 L (3.4-5.0) gm/dl Globulin 4.3 H (2.5-4.0) gm/dl Albumin/Globulin Ratio 0.6 L (0.9-2) SARS-CoV-2 (PCR) (Negative) 02/08/21 Range/Units 13:50 RBC (4.7-6.1) M/uL Hgb (14.0-18.0) g/dL Hct (42-52) % Lymph # (Auto) (1.2-3.4) K/uL APTT (21.0-31.0) Seconds Sodium (136-145) mmol/L BUN/Creatinine Ratio (10-20) Glucose (70-99) mg/dl Calcium (8.5-10.1) mg/dl Magnesium (1.8-2.4) mg/dl AST (15-37) U/L C-Reactive Protein (0-0.29) mg/dl Albumin (3.4-5.0) gm/dl Globulin (2.5-4.0) gm/dl Albumin/Globulin Ratio (0.9-2) SARS-CoV-2 (PCR) POSITIVE A* (Negative) Diagnostic Findings XR chest 1V portable CLINICAL HISTORY: SOB. COMPARISON STUDY: No previous studies for comparison. TECHNIQUE: 1 view of the chest FINDINGS: Single frontal view of the chest demonstrates the cardiomediastinal silhouette to be within normal limits. Patchy interstitial and alveolar opacities are present bilaterally. The findings are most characteristic of a viral type pneumonitis. Covid 19 pneumonia should be excluded. There is no evidence for pleural effusion. There is no evidence for vascular congestion. There is no acute osseous pathology. IMPRESSION: Patchy interstitial and alveolar opacities bilaterally, right greater than left characteristic of a viral type pneumonitis and probable Covid 19 pneumonia. Medications Administered ER Medications Given: Dexamethasone 6mg IV NSS 500ml bolus Duoneb 3ml NEB Acetaminophen 1000mg PO Magnesium sulphate 1g IV ECG Indication: SOB/dyspnea Rate (beats per minute): 85 Rhythm: normal sinus Comparison ECG Date: from (January 12, 2018) Change: the following changes noted (age undetermind anterior infarct appears new) Code Status & VTE Plan Code Status Full VTE Prophylaxis Plan VTE Prophylaxis will be ordered: Yes PG Care Time/CCT Total # of Minutes Spent Total Time Spent with Patient: Total time spent is greater than 50% in coordination of care (as documented) at patient's floor/unit and/or counseling patient: Coding Level of Care Code 45652 Initial Inpt Care Lvl 3 Diagnoses Pneumonia due to COVID-19 virus U07.1; J12.82 Severe obstructive sleep apnea G47.33 HTN, goal below 130/80 I10 Clear cell renal cell carcinoma C64.9 Hyperglycemia R73.9 Acute respiratory failure with hypoxia J96.01
[2021-02-08] MEDS ORDERED: INSULIN ASPART PER UNIT SC STA (15:48)
--- NOTE | 2021-02-08 16:04 | Electrocardiogram Report ---
Test Reason : Blood Pressure : / mmHG Vent. Rate : 085 BPM Atrial Rate : 085 BPM P-R Int : 170 ms QRS Dur : 098 ms QT Int : 350 ms P-R-T Axes : 058 -27 053 degrees QTc Int : 416 ms Normal sinus rhythm Poor R wave progression, consider anterior ME vs. lead placement vs. LVH Abnormal ECG When compared with ECG of 12-JAN-2018 08:38, Anterior infarct is now Present Confirmed by Luis Angel Lowe ([id number]) on 02/08/2021 4:03:47 PM Referred By: REFERRED SELF Confirmed By:Luis Angel Lowe
[2021-02-08 16:07] LABS: D Dimer 900 ug/L FEU (0-500)
[2021-02-08 18:35] LABS: SARS CoV2 RNA(COVID-19) InHosp POSITIVE (Negative)
[2021-02-08] MEDS ORDERED: ONDANSETRON INJ 2 MG/ML 2 ML VIAL IV PRN (20:40)
[2021-02-08] MEDS ORDERED: PHARMACY GLYCEMIC MGMT CONSULT PRN (20:40)
[2021-02-08] MEDS ORDERED: POLYETHYLENE (MIRALAX) 17 GM PACK PO PRN (20:40)
[2021-02-08] MEDS ORDERED: INSULIN GLARGINE SOLOSTAR 100 UNITS/ML 3 ML PEN SC ONE (21:30)
[2021-02-09] MEDS: INSULIN ASPART 100 UNITS/ML VIAL SC SCH ×5 (00:23→22:25)
[2021-02-09] MEDS: GABAPENTIN 100 MG CAP PO SCH ×2 (00:29→21:37)
[2021-02-09] MEDS: ENOXAPARIN INJ 40 MG/0.4 ML SYR SQ SCH ×3 (00:29→21:37)
[2021-02-09] MEDS ORDERED: INSULIN ASPART 100 UNITS/ML VIAL SC ONE (02:00)
[2021-02-09 04:56] LABS: Basophils # (auto) 0.01 K/uL (0-0.2); Basophils % (auto) 0.2 %; Hematocrit (blood only) 40.7 % (42-52); Hemoglobin 14.1 g/dL (14.0-18.0); Immature Granulocytes # (auto) 0.05 K/uL (0.00-0.02); Immature Granulocytes % (auto) 0.8 %; Lymphocytes # (auto) 0.71 K/uL (1.2-3.4); Lymphocytes % (auto) 11.4 %; Mean Corpuscular Hemoglobin 29.6 pg (25-34); Mean Corpuscular Hgb Conc 34.6 g/dL (32-36); Mean Corpuscular Volume 85.3 fL (80-100); Mean Platelet Volume 10.1 fL (7.4-10.4); Monocytes # (auto) 0.37 K/uL (0.11-0.59); Monocytes % (auto) 5.9 %; Neutrophils # (auto) 5.08 K/uL (1.4-6.5); Neutrophils % (auto) 81.7 %; Platelet Count 201 K/uL (130-400); RDW Coefficient of Variation 13.1 % (11.5-14.5); RDW Standard Deviation 41.1 fL (36.4-46.3); Red Blood Count 4.77 M/uL (4.7-6.1); White Blood Count 6.22 K/uL (4.8-10.8)
[2021-02-09 05:49] LABS: BUN Creatinine Ratio 12.5 (10-20); C Reactive Protein 4.67 mg/dl (0-0.29); Calcium 8.1 mg/dl (8.5-10.1); Creatinine Clr Calc Pharmacy 69.3 ml/min; Est GFR (African American) 60.7 ml/min; Est GFR (Non-African American) 52.4 ml/min; Magnesium 2.4 mg/dl (1.8-2.4); Potassium 4.5 mmol/L (3.5-5.1)
[2021-02-09 06:07] LABS: Beta-Hydroxybutyrate 1.56 mg/dl (0.2-2.81)
[2021-02-09] MEDS ORDERED: INSULIN HUMAN REGULAR PER UNIT 5 UNITS in SYRINGE 4.95 ML IV ONE (06:30)
[2021-02-09] MEDS ORDERED: INSULIN HUMAN NPH SC ONE (09:00)
[2021-02-09] MEDS: dexAMETHasone 6 MG in SYRINGE 0 ML IV SCH (09:00)
[2021-02-09 09:24] LABS: Estimated Average Glucose 258 mg/dl; Hemoglobin A1C 10.6 % (4.5-5.6)
[2021-02-09] MEDS ORDERED: INSULIN GLARGINE SOLOSTAR 100 UNITS/ML 3 ML PEN SC ONE (09:30)
--- NOTE | 2021-02-09 10:19 | Electrocardiogram Report ---
Test Reason : Blood Pressure : / mmHG Vent. Rate : 084 BPM Atrial Rate : 084 BPM P-R Int : 164 ms QRS Dur : 096 ms QT Int : 342 ms P-R-T Axes : 059 -24 048 degrees QTc Int : 404 ms Normal sinus rhythm Poor R wave progression, consider anterior PA vs. lead placement vs. LVH Abnormal ECG When compared with ECG of 12-JAN-2018 08:38, Anterior infarct is now Present Confirmed by Luis Angel Lowe ([id number]) on 02/09/2021 10:19:11 AM Referred By: REFERRED SELF Confirmed By:Luis Angel Lowe
--- NOTE | 2021-02-09 14:30 | Hospitalist Progress Note ---
Date of Service February 09, 2021 Assessment & Plan (1) Pneumonia due to COVID-19 virus: Plan: Day 10 of illness on admission getting worse today, up to 10L, tachypneic, belly breathing suspect he will need Vapotherm, BIPAP before long dexamethasone 6mg IV daily too far along in illness for Remdesivir CRP is < 7.5, not a candidate for baricitinib yet, repeat CRP tomorrow flutter valve, incentive spirometer appears dry, hold on Lasix but will try it soon, maybe tomorrow (2) Acute respiratory failure with hypoxia: Plan: Secondary to COVID-19 as above Aim O2 sats > 90% requiring more oxygen, belly breathing likely will deteriorate (3) Severe obstructive sleep apnea: Plan: CPAP HS and must wear while napping (4) HTN, goal below 130/80: Plan: Hold amlodipine and spironolactone as he has not been taking this encourage hydration (5) Clear cell renal cell carcinoma: Plan: s/p left radical nephrectomy Cr is 1.5, making urine but it is dark, 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 Most recent HbA1C 5.5 in 11/2017 although unknown if he was on medications at that time. Glucose 228 on admission. pharmacy consulted has had hyperglycemia today Plan: VTE Prophylaxis - Lovenox 40mg SQ BID Diet - T2DM Disposition - COVID isolation precautions, admit to med/surg Admission and Anticipated Discharge Date Admission Date: February 08, 2021 Subjective patient confirms he has been sick for a week he still feels short of breath, has a cough, no sputum no fever sugars are better, appreciate pharmacy assistance reviewed labs and imaging he is up to 8L, may need more oxygen, possibly headed for high flow spiking fevers Review of Systems Review of Systems: All systems reviewed & are unremarkable except as noted in Subjective Constitutional: + fever, + sweats, + fatigue and + weakness Respiratory: + cough, + dyspnea and + dyspnea on exertion Physical Exam Physical Exam: General: well developed, obese male, ill appearing, diaphoretic Neck: supple, trachea midline, normal thyroid Lungs: diminished sounds, poor air flow, + tachypnea, + accessory muscle use, + cough Heart: tachycardic S1 and S2, no murmur, peripheral pulses normal, capillary refill normal, no edema Abdomen: soft, NT, ND, + BS, no hepatomegaly, normal to percussion Extremities: normal in appearance, no cyanosis, no petechiae, strength is 5/5 bilaterally Neuro: awake, cooperative, moves all extremities, no focal motor deficits, CN II-XII intact Skin: warm, dry, no rash, normal turgor Psych: Awake, alert oriented x 3, euthymic affect Results & Data Results & Data ([facility]) Vital Signs (Past 12 Hours) Vital Signs Pulse Resp BP Pulse Ox 02/09/21 08:58 109 H 24 114/71 89 L 02/09/21 06:33 82 18 109/75 94 02/09/21 05:22 78 18 103/66 94 Laboratory Results Laboratory Results - last 24 hr 02/08/21 02/08/21 02/08/21 12:35 12:35 13:50 WBC RBC Hgb Hct MCV MCH MCHC RDW Std Deviation RDW Coeff of Geri Plt Count MPV Immature Gran % (Auto) Neut % (Auto) Lymph % (Auto) [place] % (Auto) Eos % (Auto) Baso % (Auto) Neut # (Auto) Lymph # (Auto) [place] # (Auto) Eos # (Auto) Baso # (Auto) Immature Gran # (Auto) D-Dimer 900 H* Sodium Potassium Chloride Carbon Dioxide Anion Gap BUN Creatinine Est Cr Clr Drug Dosing Est GFR ( Amer) Est GFR (Non-Af Amer) BUN/Creatinine Ratio Glucose POC Glucose Estimat Average Glucose Hemoglobin A1c Lactate Calcium Magnesium C-Reactive Protein Beta-Hydroxybutyric Acd Procalcitonin 0.17 SARS-CoV-2 (PCR) POSITIVE A* Influenza Type A (PCR) Negative Influenza Type B (PCR) Negative RSV (RT-PCR) Negative 02/08/21 02/08/21 02/09/21 13:56 16:14 00:16 WBC RBC Hgb Hct MCV MCH MCHC RDW Std Deviation RDW Coeff of Geri Plt Count MPV Immature Gran % (Auto) Neut % (Auto) Lymph % (Auto) [place] % (Auto) Eos % (Auto) Baso % (Auto) Neut # (Auto) Lymph # (Auto) [place] # (Auto) Eos # (Auto) Baso # (Auto) Immature Gran # (Auto) D-Dimer Sodium Potassium Chloride Carbon Dioxide Anion Gap BUN Creatinine Est Cr Clr Drug Dosing Est GFR ( Amer) Est GFR (Non-Af Amer) BUN/Creatinine Ratio Glucose POC Glucose 246 H 352 H* Estimat Average Glucose Hemoglobin A1c Lactate 1.2 Calcium Magnesium C-Reactive Protein Beta-Hydroxybutyric Acd Procalcitonin SARS-CoV-2 (PCR) Influenza Type A (PCR) Influenza Type B (PCR) RSV (RT-PCR) 02/09/21 02/09/21 02/09/21 02:12 04:40 04:40 WBC 6.22 RBC 4.77 Hgb 14.1 Hct 40.7 L MCV 85.3 MCH 29.6 MCHC 34.6 RDW Std Deviation 41.1 RDW Coeff of Geri 13.1 Plt Count 201 MPV 10.1 Immature Gran % (Auto) 0.8 Neut % (Auto) 81.7 Lymph % (Auto) 11.4 [place] % (Auto) 5.9 Eos % (Auto) 0.0 Baso % (Auto) 0.2 Neut # (Auto) 5.08 Lymph # (Auto) 0.71 L [place] # (Auto) 0.37 Eos # (Auto) 0.00 Baso # (Auto) 0.01 Immature Gran # (Auto) 0.05 H D-Dimer Sodium Potassium Chloride Carbon Dioxide Anion Gap BUN Creatinine Est Cr Clr Drug Dosing Est GFR ( Amer) Est GFR (Non-Af Amer) BUN/Creatinine Ratio Glucose POC Glucose 343 H* Estimat Average Glucose 258 Hemoglobin A1c 10.6 H Lactate Calcium Magnesium C-Reactive Protein Beta-Hydroxybutyric Acd Procalcitonin SARS-CoV-2 (PCR) Influenza Type A (PCR) Influenza Type B (PCR) RSV (RT-PCR) 02/09/21 02/09/21 04:40 08:27 WBC RBC Hgb Hct MCV MCH MCHC RDW Std Deviation RDW Coeff of Geri Plt Count MPV Immature Gran % (Auto) Neut % (Auto) Lymph % (Auto) [place] % (Auto) Eos % (Auto) Baso % (Auto) Neut # (Auto) Lymph # (Auto) [place] # (Auto) Eos # (Auto) Baso # (Auto) Immature Gran # (Auto) D-Dimer Sodium 131 L Potassium 4.5 Chloride 101 Carbon Dioxide 25 Anion Gap 5.0 BUN 19 H D Creatinine 1.50 H Est Cr Clr Drug Dosing 69.3 Est GFR ( Amer) 60.7 Est GFR (Non-Af Amer) 52.4 BUN/Creatinine Ratio 12.5 Glucose 339 H* POC Glucose 234 H Estimat Average Glucose Hemoglobin A1c Lactate Calcium 8.1 L Magnesium 2.4 C-Reactive Protein 4.67 H Beta-Hydroxybutyric Acd 1.56 Procalcitonin SARS-CoV-2 (PCR) Influenza Type A (PCR) Influenza Type B (PCR) RSV (RT-PCR) Medications Administered Current Inpatient Medications Acetaminophen (Acetaminophen 325 Mg Tab) 650 mg PO Q4H PRN PRN Reason: pain/fever Stop: 03/10/21 20:39 Enoxaparin Sodium (Enoxaparin Inj 40 Mg/0.4 Ml Syr) 40 mg SQ Q12H [facility] Stop: 03/10/21 20:59 Last Admin: 02/09/21 09:02 Dose: 40 mg Documented by: Gabapentin (Gabapentin 100 Mg Cap) 200 mg PO HS [facility] Stop: 03/10/21 20:59 Last Admin: 02/09/21 00:29 Dose: 200 mg Documented by: Dexamethasone 6 mg/ Syringe 1.5 mls @ 1 mls/min IV QAM [facility] Stop: 02/18/21 08:59 Last Admin: 02/09/21 09:00 Dose: 1 mls/min Documented by: Insulin Aspart (Insulin Aspart 100 Units/Ml Vial) 0 units SC ACHS [facility] Stop: 03/10/21 21:29 Last Admin: 02/09/21 12:30 Dose: 15 units Documented by: Miscellaneous Information (Pharmacy Glycemic Mgmt Consult) 1 ea N/A UD PRN PRN Reason: Consult Stop: 03/10/21 20:39 Ondansetron HCl (Ondansetron Inj 2 Mg/Ml 2 Ml Vial) 4 mg IV Q6H PRN PRN Reason: Nausea Stop: 03/10/21 20:39 Polyethylene Glycol (Polyethylene (Miralax) 17 Gm Pack) 17 gm PO DAILY PRN PRN Reason: Constipation Stop: 03/10/21 20:39 PG Care Time/CCT Total # of Minutes Spent Total Time Spent with Patient: Total time spent is greater than 50% in coordination of care (as documented) at patient's floor/unit and/or counseling patient: Coding Level of Care Code 79538 Subseq Hosp Care Lvl 3 Diagnoses Pneumonia due to COVID-19 virus U07.1; J12.82 Acute respiratory failure with hypoxia J96.01 Severe obstructive sleep apnea G47.33 HTN, goal below 130/80 I10 Clear cell renal cell carcinoma C64.9 Hyperglycemia R73.9
--- NOTE | 2021-02-09 14:51 | Pharmacy Report ---
Pharmacy Glycemic Short Note 2 - Date of Service February 09, 2021 - Glycemic Short BSG Results (Last 24 hours): 02/08/21 02/09/21 02/09/21 16:14 00:16 02:12 Glucose POC Glucose 246 H 352 H* 343 H* 02/09/21 02/09/21 04:40 08:27 Glucose 339 H* POC Glucose 234 H OUTPATIENT ANTIDIABETIC REGIMEN: * N/A * HbA1C = 10.6% ASSESSMENT: * Mr Ku is a 55 y/o M with a PMH of uncontrolled T2DM who presents with COVID. * His presenting BSG was 228 mg/dL. * He received dexamethasone 6 mg in the ED. * BSGs afterwards were 352 (received 15 units of Novolog and 30 units of Lantus) and at 0200 343 mg/dL. Patient received 14 units of Novolog at 0200. * "Fasting" BSG was 234 mg/dL after 5 units bolus. * Lunch BSG is 215 mg/dL. * Elected to give Lantus 20 units this morning (weight-based stress of 2) as HbA1C is 10.6% and suspect that underlying basal requirements around 40 units/day. Continue with a Lantus scale this evening with 10-20 units based upon BSG. * Novolog weight-based stress of 2-3 due to steroids. PLAN FOR INPATIENT GLYCEMIC CONTROL: * Basal insulin * Lantus 20 units SQ x 1 then 20-30 units SQ BID based upon BSG * Bolus insulin * NovoLog per scale ACHS or Q6hrs while NPO * Goal Range: Low 110 mg/dL - High 140 mg/dL * Correction Factor: 15 mg/dL/unit * Nutritional / Prandial insulin per carb ratio of 1 unit per 3 grams CHO consumed PLAN FOR DISCHARGE: * TBD
[2021-02-09] MEDS: ACETAMINOPHEN 325 MG TAB PO PRN (17:40)
[2021-02-09] MEDS ORDERED: INSULIN GLARGINE SOLOSTAR 100 UNITS/ML 3 ML PEN SC SCH (21:00)
[2021-02-10 05:38] LABS: Basophils # (auto) 0.01 K/uL (0-0.2); Basophils % (auto) 0.1 %; Hematocrit (blood only) 39.1 % (42-52); Hemoglobin 13.3 g/dL (14.0-18.0); Immature Granulocytes # (auto) 0.04 K/uL (0.00-0.02); Immature Granulocytes % (auto) 0.5 %; Lymphocytes # (auto) 0.59 K/uL (1.2-3.4); Lymphocytes % (auto) 6.8 %; Mean Corpuscular Hemoglobin 29.2 pg (25-34); Mean Corpuscular Volume 85.9 fL (80-100); Monocytes # (auto) 0.51 K/uL (0.11-0.59); Monocytes % (auto) 5.8 %; Neutrophils # (auto) 7.58 K/uL (1.4-6.5); Neutrophils % (auto) 86.8 %; Platelet Count 253 K/uL (130-400); RDW Coefficient of Variation 13.3 % (11.5-14.5); Red Blood Count 4.55 M/uL (4.7-6.1); White Blood Count 8.73 K/uL (4.8-10.8)
[2021-02-10 06:08] LABS: Calcium 8.3 mg/dl (8.5-10.1); Est GFR (African American) 62.7 ml/min; Est GFR (Non-African American) 54.1 ml/min; Potassium 4.7 mmol/L (3.5-5.1)
[2021-02-10 06:11] LABS: C Reactive Protein 4.08 mg/dl (0-0.29)
[2021-02-10] MEDS ORDERED: INSULIN HUMAN NPH SC ONE (09:00)
[2021-02-10] MEDS ORDERED: INSULIN GLARGINE SOLOSTAR 100 UNITS/ML 3 ML PEN SC ONE (09:00)
[2021-02-10] MEDS ORDERED: DEXAMETHASONE SOD INJ 4 MG/ML VIAL ONE (09:30)
[2021-02-10] MEDS: ENOXAPARIN INJ 40 MG/0.4 ML SYR SQ SCH ×2 (09:32→20:41)
[2021-02-10] MEDS: dexAMETHasone 6 MG in SYRINGE 0 ML IV SCH (09:32)
[2021-02-10] MEDS: INSULIN ASPART 100 UNITS/ML VIAL SC SCH ×4 (09:32→21:03)
[2021-02-10] MEDS: ACETAMINOPHEN 325 MG TAB PO PRN (12:07)
--- NOTE | 2021-02-10 12:16 | Pharmacy Report ---
Pharmacy Glycemic Short Note 2 - Date of Service February 10, 2021 - Glycemic Short BSG Results (Last 24 hours): 02/09/21 02/09/21 02/09/21 12:29 17:11 21:36 Glucose POC Glucose 215 H 122 H 87 02/10/21 02/10/21 04:55 08:00 Glucose 160 H POC Glucose 211 H OUTPATIENT ANTIDIABETIC REGIMEN: * N/A * HbA1C = 10.6% ASSESSMENT: 02/10/21 * Patient's BSGs yesterday were [phone] mg/dL and fasting today is 211 mg/dL. * Patient received 106 units of insulin yesterday with 60 units of basal (Lantus 20 units and 40 units NPH) and 46 units of bolus. * Dexamethasone 6 mg IV daily to continue. Repeat NPH 40 units daily as appeared effective. Continue Lantus 20 units with scale tomorrow based upon BSG * Loosen Novolog as patient's BSGs trend down significantly yesterday. . BACKGROUND * Mr Ku is a 55 y/o M with a PMH of uncontrolled T2DM who presents with COVID. * His presenting BSG was 228 mg/dL. * He received dexamethasone 6 mg in the ED. * BSGs afterwards were 352 (received 15 units of Novolog and 30 units of Lantus) and at 0200 343 mg/dL. Patient received 14 units of Novolog at 0200. * "Fasting" BSG was 234 mg/dL after 5 units bolus. * Lunch BSG is 215 mg/dL. * Elected to give Lantus 20 units this morning (weight-based stress of 2) as HbA1C is 10.6% and suspect that underlying basal requirements around 40 units/day. Continue with a Lantus scale this evening with 10-20 units based upon BSG. * Novolog weight-based stress of 2-3 due to steroids. PLAN FOR INPATIENT GLYCEMIC CONTROL: * Basal insulin * Lantus 20 units SQ x 1 then 20-25 units qAM based upon BSG * Bolus insulin * NovoLog per scale ACHS or Q6hrs while NPO * Goal Range: Low 110 mg/dL - High 140 mg/dL * Correction Factor: 20 mg/dL/unit * Nutritional / Prandial insulin per carb ratio of 1 unit per 4 grams CHO consumed PLAN FOR DISCHARGE: * TBD
--- NOTE | 2021-02-10 16:15 | Hospitalist Progress Note ---
Date of Service February 10, 2021 Assessment & Plan (1) Pneumonia due to COVID-19 virus: Plan: Day 10 of illness on admission he remains stable on 10L mask while awake, on CPAP when sleeping due to RAD saturations are 95% when awake, no distress today, less accessory muscle use overall he looks a little better dexamethasone 6mg IV daily, day 3 too far along in illness for Remdesivir CRP is < 7.5, not a candidate for baricitinib yet, repeat CRP today is 4 flutter valve, incentive spirometer consider Lasix tomorrow (2) Acute respiratory failure with hypoxia: Plan: Secondary to COVID-19 as above Aim O2 sats > 90% stable on 10L, could likely be on a little less oxygen CPAP HS due to RAD less work of breathing today which is good sign (3) Severe obstructive sleep apnea: Plan: CPAP HS and must wear while napping (4) HTN, goal below 130/80: Plan: Hold amlodipine and spironolactone as he has not been taking this encourage hydration (5) Clear cell renal cell carcinoma: Plan: s/p left radical nephrectomy Cr is 1.4, making urine, more clear (6) Hyperglycemia: Plan: Patient denies diabetes. Most recent HbA1C 5.5 in 11/2017 although unknown if he was on medications at that time. glucose well controlled today he is on Novolog, Lantus and NPH Plan: VTE Prophylaxis - Lovenox 40mg SQ BID Diet - T2DM Disposition - COVID isolation precautions, admit to med/surg Admission and Anticipated Discharge Date Admission Date: February 08, 2021 Subjective patient feeling well, stable on 10L, he was sleeping and sats were 92% when I walked in the room when he woke up his sats went up to 96% he is sleeping at night with his CPAP eating really well, sugars controlled Cr is 1.5 which is baseline, K is normal, CRP is 4 discussed laying on his side, he cannot lay prone Review of Systems Review of Systems: All systems reviewed & are unremarkable except as noted in Subjective Constitutional: + fatigue; no fever and no weakness Respiratory: + cough, + dyspnea and + dyspnea on exertion; no sputum production Cardiovascular: no chest pain Gastrointestinal: no abdominal pain, no nausea, no vomiting, no constipation and no diarrhea/loose stools Physical Exam Physical Exam: General: well developed, obese male, ill appearing, diaphoretic Neck: supple, trachea midline, normal thyroid Lungs: diminished sounds, poor air flow, normal effort, no accessory muscle use, + cough Heart: tachycardic S1 and S2, no murmur, peripheral pulses normal, capillary refill normal, no edema Abdomen: soft, NT, ND, + BS, no hepatomegaly, normal to percussion Extremities: normal in appearance, no cyanosis, no petechiae, strength is 5/5 bilaterally Neuro: awake, cooperative, moves all extremities, no focal motor deficits, CN II-XII intact Skin: warm, dry, no rash, normal turgor Psych: Awake, alert oriented x 3, euthymic affect Results & Data Results & Data ([facility]) Vital Signs (Past 12 Hours) Vital Signs Temp Pulse Pulse Pulse Resp BP BP 02/10/21 13:20 37.2 C 02/10/21 11:54 37.7 C H 93 H 18 145/76 H 02/10/21 06:30 91 H 117/74 02/10/21 04:57 37.4 C 89 26 H 117/74 Pulse Ox 02/10/21 13:20 02/10/21 11:54 91 02/10/21 06:30 93 02/10/21 04:57 96 Laboratory Results Laboratory Results - last 24 hr 02/09/21 02/09/21 02/10/21 17:11 21:36 04:55 WBC 8.73 RBC 4.55 L Hgb 13.3 L Hct 39.1 L MCV 85.9 MCH 29.2 MCHC 34.0 RDW Std Deviation 42.0 RDW Coeff of Geri 13.3 Plt Count 253 MPV 10.0 Immature Gran % (Auto) 0.5 Neut % (Auto) 86.8 Lymph % (Auto) 6.8 [place] % (Auto) 5.8 Eos % (Auto) 0.0 Baso % (Auto) 0.1 Neut # (Auto) 7.58 H Lymph # (Auto) 0.59 L [place] # (Auto) 0.51 Eos # (Auto) 0.00 Baso # (Auto) 0.01 Immature Gran # (Auto) 0.04 H Sodium Potassium Chloride Carbon Dioxide Anion Gap BUN Creatinine Est Cr Clr Drug Dosing Est GFR ( Amer) Est GFR (Non-Af Amer) BUN/Creatinine Ratio Glucose POC Glucose 122 H 87 Calcium C-Reactive Protein 02/10/21 02/10/21 02/10/21 04:55 08:00 12:06 WBC RBC Hgb Hct MCV MCH MCHC RDW Std Deviation RDW Coeff of Geri Plt Count MPV Immature Gran % (Auto) Neut % (Auto) Lymph % (Auto) [place] % (Auto) Eos % (Auto) Baso % (Auto) Neut # (Auto) Lymph # (Auto) [place] # (Auto) Eos # (Auto) Baso # (Auto) Immature Gran # (Auto) Sodium 132 L Potassium 4.7 Chloride 101 Carbon Dioxide 25 Anion Gap 6.0 BUN 25 H Creatinine 1.46 H Est Cr Clr Drug Dosing 68.0 Est GFR ( Amer) 62.7 Est GFR (Non-Af Amer) 54.1 BUN/Creatinine Ratio 17.0 Glucose 160 H POC Glucose 211 H 137 H Calcium 8.3 L C-Reactive Protein 4.08 H Medications Administered Current Inpatient Medications Acetaminophen (Acetaminophen 325 Mg Tab) 650 mg PO Q4H PRN PRN Reason: pain/fever Stop: 03/10/21 20:39 Last Admin: 02/10/21 12:07 Dose: 650 mg Documented by: Enoxaparin Sodium (Enoxaparin Inj 40 Mg/0.4 Ml Syr) 40 mg SQ Q12H [facility] Stop: 03/10/21 20:59 Last Admin: 02/10/21 09:32 Dose: 40 mg Documented by: Gabapentin (Gabapentin 100 Mg Cap) 200 mg PO HS [facility] Stop: 03/10/21 20:59 Last Admin: 02/09/21 21:37 Dose: 200 mg Documented by: Dexamethasone 6 mg/ Syringe 1.5 mls @ 1 mls/min IV QAM [facility] Stop: 02/18/21 08:59 Last Admin: 02/10/21 09:32 Dose: Not Given Documented by: Insulin Aspart (Insulin Aspart 100 Units/Ml Vial) 0 units SC ACHS [facility] Stop: 03/10/21 21:29 Last Admin: 02/10/21 13:26 Dose: 6 units Documented by: Insulin Glargine (Insulin Glargine Solostar 100 Units/Ml 3 Ml Pen) 0 units SC QAM [facility]; Protocol Stop: 03/13/21 08:59 Insulin Human NPH (Insulin Human Nph) 40 units SC DAILY [facility] Stop: 03/13/21 08:59 Miscellaneous Information (Pharmacy Glycemic Mgmt Consult) 1 ea N/A UD PRN PRN Reason: Consult Stop: 03/10/21 20:39 Ondansetron HCl (Ondansetron Inj 2 Mg/Ml 2 Ml Vial) 4 mg IV Q6H PRN PRN Reason: Nausea Stop: 03/10/21 20:39 Polyethylene Glycol (Polyethylene (Miralax) 17 Gm Pack) 17 gm PO DAILY PRN PRN Reason: Constipation Stop: 03/10/21 20:39 PG Care Time/CCT Total # of Minutes Spent Total Time Spent with Patient: Total time spent is greater than 50% in coordination of care (as documented) at patient's floor/unit and/or counseling patient: Coding Level of Care Code 77800 Subseq Hosp Care Lvl 3 Diagnoses Pneumonia due to COVID-19 virus U07.1; J12.82 Acute respiratory failure with hypoxia J96.01 Severe obstructive sleep apnea G47.33 HTN, goal below 130/80 I10 Clear cell renal cell carcinoma C64.9 Hyperglycemia R73.9
[2021-02-10] MEDS: GABAPENTIN 100 MG CAP PO SCH (20:40)
[2021-02-11] MEDS: BENZONATATE 100 MG CAPSULE PO PRN ×2 (00:26→11:03)
[2021-02-11] MEDS: ACETAMINOPHEN 325 MG TAB PO PRN (05:09)
[2021-02-11 07:53] LABS: BUN Creatinine Ratio 22.9 (10-20); Calcium 8.1 mg/dl (8.5-10.1); Est GFR (African American) 68.4 ml/min; Potassium 4.2 mmol/L (3.5-5.1)
[2021-02-11] MEDS ORDERED: FUROSEMIDE INJ 20 MG/2 ML VIAL IV ONE (08:36)
[2021-02-11] MEDS ORDERED: BENZONATATE 100 MG CAPSULE PO SCH (09:00)
[2021-02-11] MEDS: INSULIN ASPART 100 UNITS/ML VIAL SC SCH ×4 (09:19→21:06)
[2021-02-11] MEDS: INSULIN GLARGINE SOLOSTAR 100 UNITS/ML 3 ML PEN SC SCH (09:26)
[2021-02-11] MEDS: INSULIN HUMAN NPH SC SCH (09:29)
[2021-02-11] MEDS: dexAMETHasone 6 MG in SYRINGE 0 ML IV SCH (09:46)
[2021-02-11] MEDS: ENOXAPARIN INJ 40 MG/0.4 ML SYR SQ SCH ×2 (09:52→21:05)
--- NOTE | 2021-02-11 12:53 | Hospitalist Progress Note ---
Date of Service February 11, 2021 Assessment & Plan (1) Pneumonia due to COVID-19 virus: Plan: Day 10 of illness on admission he remains stable on 10L mask while awake, on CPAP when sleeping due to RAD saturations are 95% when awake, no distress today, less accessory muscle use overall he looks a little better dexamethasone 6mg IV daily, day 4 too far along in illness for Remdesivir CRP is < 7.5, not a candidate for baricitinib yet, repeat CRP 02/10 was 4 flutter valve, incentive spirometer give Lasix 20mg IV this morning (2) Acute respiratory failure with hypoxia: Plan: Secondary to COVID-19 as above Aim O2 sats > 90% increased to 15L mask, will give Lasix 20mg IV for negative fluid balance CPAP HS due to RAD (3) Severe obstructive sleep apnea: Plan: CPAP HS and must wear while napping (4) HTN, goal below 130/80: Plan: Hold amlodipine and spironolactone as he has not been taking this encourage hydration (5) Clear cell renal cell carcinoma: Plan: s/p left radical nephrectomy Cr is 1.36, making urine, more clear Lasix today (6) Hyperglycemia: Plan: Patient denies diabetes. Most recent HbA1C 5.5 in 11/2017 although unknown if he was on medications at that time. glucose well controlled today he is on Novolog, Lantus and NPH monitor for hypoglycemia Plan: VTE Prophylaxis - Lovenox 40mg SQ BID Diet - T2DM Disposition - COVID isolation precautions, admit to med/surg Admission and Anticipated Discharge Date Admission Date: February 08, 2021 Subjective patient doing well on 10L NC, no distress, he says he feels better he wants to know why his oxygen requirements are not lower I explained it takes time, this is not a quick process gave him Lasix this morning to get some extra fluid off he is eating really well, sugars are controlled no fever, no diarrhea, no chest pain, no nausea minimal cough, not really an issue Review of Systems Review of Systems: All systems reviewed & are unremarkable except as noted in Subjective Physical Exam Physical Exam: General: well developed, obese male, ill appearing, diaphoretic Neck: supple, trachea midline, normal thyroid Lungs: diminished sounds, poor air flow, normal effort, no accessory muscle use, + cough Heart: tachycardic S1 and S2, no murmur, peripheral pulses normal, capillary refill normal, no edema Abdomen: soft, NT, ND, + BS, no hepatomegaly, normal to percussion Extremities: normal in appearance, no cyanosis, no petechiae, strength is 5/5 bilaterally Neuro: awake, cooperative, moves all extremities, no focal motor deficits, CN II-XII intact Skin: warm, dry, no rash, normal turgor Psych: Awake, alert oriented x 3, euthymic affect Results & Data Results & Data ([facility]) Vital Signs (Past 12 Hours) Vital Signs Temp Pulse Pulse Resp BP Pulse Ox 02/11/21 09:09 36.9 C 72 22 90 02/11/21 04:00 37.2 C 72 20 160/81 H 88 L 02/11/21 03:23 85 21 93 Laboratory Results Laboratory Results - last 24 hr 02/10/21 02/10/21 02/11/21 18:13 20:39 06:37 Sodium 133 L Potassium 4.2 Chloride 102 Carbon Dioxide 24 Anion Gap 7.0 BUN 31 H Creatinine 1.36 Est Cr Clr Drug Dosing 73.0 Est GFR ( Amer) 68.4 Est GFR (Non-Af Amer) 59.0 BUN/Creatinine Ratio 22.9 H Glucose 119 H POC Glucose 189 H 192 H Calcium 8.1 L 02/11/21 09:06 Sodium Potassium Chloride Carbon Dioxide Anion Gap BUN Creatinine Est Cr Clr Drug Dosing Est GFR ( Amer) Est GFR (Non-Af Amer) BUN/Creatinine Ratio Glucose POC Glucose 140 H Calcium Medications Administered Current Inpatient Medications Acetaminophen (Acetaminophen 325 Mg Tab) 650 mg PO Q4H PRN PRN Reason: pain/fever Stop: 03/10/21 20:39 Last Admin: 02/11/21 05:09 Dose: 650 mg Documented by: Benzonatate (Benzonatate 100 Mg Capsule) 100 mg PO TID PRN PRN Reason: cough Stop: 03/13/21 08:59 Last Admin: 02/11/21 11:03 Dose: 100 mg Documented by: Enoxaparin Sodium (Enoxaparin Inj 40 Mg/0.4 Ml Syr) 40 mg SQ Q12H [facility] Stop: 03/10/21 20:59 Last Admin: 02/11/21 09:52 Dose: 40 mg Documented by: Gabapentin (Gabapentin 100 Mg Cap) 200 mg PO HS [facility] Stop: 03/10/21 20:59 Last Admin: 02/10/21 20:40 Dose: 200 mg Documented by: Dexamethasone 6 mg/ Syringe 1.5 mls @ 1 mls/min IV QAM [facility] Stop: 02/18/21 08:59 Last Admin: 02/11/21 09:46 Dose: 1 mls/min Documented by: Insulin Aspart (Insulin Aspart 100 Units/Ml Vial) 0 units SC ACHS [facility] Stop: 03/10/21 21:29 Last Admin: 02/11/21 09:19 Dose: 5 units Documented by: Insulin Glargine (Insulin Glargine Solostar 100 Units/Ml 3 Ml Pen) 0 units SC QAM [facility]; Protocol Stop: 03/13/21 08:59 Last Admin: 02/11/21 09:26 Dose: 20 units Documented by: Insulin Human NPH (Insulin Human Nph) 40 units SC DAILY [facility] Stop: 03/13/21 08:59 Last Admin: 02/11/21 09:29 Dose: 40 units Documented by: Miscellaneous Information (Pharmacy Glycemic Mgmt Consult) 1 ea N/A UD PRN PRN Reason: Consult Stop: 03/10/21 20:39 Ondansetron HCl (Ondansetron Inj 2 Mg/Ml 2 Ml Vial) 4 mg IV Q6H PRN PRN Reason: Nausea Stop: 03/10/21 20:39 Polyethylene Glycol (Polyethylene (Miralax) 17 Gm Pack) 17 gm PO DAILY PRN PRN Reason: Constipation Stop: 03/10/21 20:39 PG Care Time/CCT Total # of Minutes Spent Total Time Spent with Patient: Total time spent is greater than 50% in coordination of care (as documented) at patient's floor/unit and/or counseling patient: Coding Level of Care Code 92038 Subseq Hosp Care Lvl 2 Diagnoses Pneumonia due to COVID-19 virus U07.1; J12.82 Acute respiratory failure with hypoxia J96.01 Severe obstructive sleep apnea G47.33 HTN, goal below 130/80 I10 Clear cell renal cell carcinoma C64.9 Hyperglycemia R73.9
[2021-02-11] MEDS: GABAPENTIN 100 MG CAP PO SCH (21:06)
[2021-02-12] MEDS ORDERED: FUROSEMIDE INJ 20 MG/2 ML VIAL IV ONE ×2 (07:53→15:00)
[2021-02-12 08:48] LABS: BUN Creatinine Ratio 24.6 (10-20); Calcium 8.1 mg/dl (8.5-10.1); Creatinine Clr Calc Pharmacy 76.4 ml/min; Est GFR (African American) 72.2 ml/min; Est GFR (Non-African American) 62.3 ml/min; Potassium 4.5 mmol/L (3.5-5.1)
[2021-02-12] MEDS: ENOXAPARIN INJ 40 MG/0.4 ML SYR SQ SCH ×2 (09:15→20:30)
[2021-02-12] MEDS: dexAMETHasone 6 MG in SYRINGE 0 ML IV SCH (09:15)
[2021-02-12] MEDS: INSULIN ASPART 100 UNITS/ML VIAL SC SCH ×4 (09:27→22:16)
[2021-02-12] MEDS: INSULIN GLARGINE SOLOSTAR 100 UNITS/ML 3 ML PEN SC SCH (09:27)
[2021-02-12] MEDS: INSULIN HUMAN NPH SC SCH (09:28)
--- NOTE | 2021-02-12 12:32 | Hospitalist Progress Note ---
Date of Service February 12, 2021 Assessment & Plan (1) Pneumonia due to COVID-19 virus: Plan: Day 10 of illness on admission he is up to 15L mask from 10L mask the past two days, on CPAP when sleeping due to RAD saturations are 95% when awake, no distress today, less accessory muscle use overall he looks a little better dexamethasone 6mg IV daily, day 5 too far along in illness for Remdesivir CRP is < 7.5, not a candidate for baricitinib yet, repeat CRP 02/10 was 4 flutter valve, incentive spirometer give Lasix 20mg IV this morning, good response, give additional 20mg IV Lasix in afternoon today since O2 went up (2) Acute respiratory failure with hypoxia: Plan: Secondary to COVID-19 as above Aim O2 sats > 90% increased to 15L mask, will give Lasix 20mg IV twice today to inducse CPAP HS due to RAD (3) Severe obstructive sleep apnea: Plan: CPAP HS and must wear while napping (4) HTN, goal below 130/80: Plan: Hold amlodipine and spironolactone as he has not been taking this encourage hydration (5) Clear cell renal cell carcinoma: Plan: s/p left radical nephrectomy Cr is 1.30, making urine, more clear Lasix today (6) Hyperglycemia: Plan: Patient denies diabetes. Most recent HbA1C 5.5 in 11/2017 although unknown if he was on medications at that time. glucose well controlled today he is on Novolog, Lantus and NPH monitor for hypoglycemia Plan: VTE Prophylaxis - Lovenox 40mg SQ BID Diet - T2DM Disposition - COVID isolation precautions, admit to med/surg Admission and Anticipated Discharge Date Admission Date: February 08, 2021 Subjective patient sitting at the edge of the bed, he is up to 15L mask he looked like he was breathing a little heavier, but he says he feels the same great response to Lasix 20mg IV this morning, will give another dose this afternoon to keep him dry sugars are decently well controlled no fever/chills, no chest pain, no GI issues Review of Systems Review of Systems: All systems reviewed & are unremarkable except as noted in Subjective Respiratory: + cough and + dyspnea Physical Exam Physical Exam: General: well developed, obese male, ill appearing, diaphoretic Neck: supple, trachea midline, normal thyroid Lungs: diminished sounds, poor air flow, normal effort, no accessory muscle use, + cough Heart: tachycardic S1 and S2, no murmur, peripheral pulses normal, capillary refill normal, no edema Abdomen: soft, NT, ND, + BS, no hepatomegaly, normal to percussion Extremities: normal in appearance, no cyanosis, no petechiae, strength is 5/5 bilaterally Neuro: awake, cooperative, moves all extremities, no focal motor deficits, CN II-XII intact Skin: warm, dry, no rash, normal turgor Psych: Awake, alert oriented x 3, euthymic affect Results & Data Results & Data ([facility]) Vital Signs (Past 12 Hours) Vital Signs Temp Pulse Resp BP Pulse Ox 02/12/21 08:54 36.6 C 74 18 114/68 90 Laboratory Results Laboratory Results - last 24 hr 02/11/21 02/11/21 02/12/21 13:02 20:54 07:01 Sodium 139 Potassium 4.5 Chloride 105 Carbon Dioxide 26 Anion Gap 8.0 BUN 32 H Creatinine 1.30 Est Cr Clr Drug Dosing 76.4 Est GFR ( Amer) 72.2 Est GFR (Non-Af Amer) 62.3 BUN/Creatinine Ratio 24.6 H Glucose 140 H POC Glucose 156 H 229 H Calcium 8.1 L 02/12/21 08:52 Sodium Potassium Chloride Carbon Dioxide Anion Gap BUN Creatinine Est Cr Clr Drug Dosing Est GFR ( Amer) Est GFR (Non-Af Amer) BUN/Creatinine Ratio Glucose POC Glucose 133 H Calcium Medications Administered Current Inpatient Medications Acetaminophen (Acetaminophen 325 Mg Tab) 650 mg PO Q4H PRN PRN Reason: pain/fever Stop: 03/10/21 20:39 Last Admin: 02/11/21 05:09 Dose: 650 mg Documented by: Benzonatate (Benzonatate 100 Mg Capsule) 100 mg PO TID PRN PRN Reason: cough Stop: 03/13/21 08:59 Last Admin: 02/11/21 11:03 Dose: 100 mg Documented by: Enoxaparin Sodium (Enoxaparin Inj 40 Mg/0.4 Ml Syr) 40 mg SQ Q12H [facility] Stop: 03/10/21 20:59 Last Admin: 02/12/21 09:15 Dose: 40 mg Documented by: Furosemide (Furosemide Inj 20 Mg/2 Ml Vial) 20 mg IV ONE ONE Stop: 02/12/21 15:01 Furosemide (Furosemide Inj 20 Mg/2 Ml Vial) 20 mg IV QAM [facility] Stop: 03/15/21 08:59 Gabapentin (Gabapentin 100 Mg Cap) 200 mg PO HS [facility] Stop: 03/10/21 20:59 Last Admin: 02/11/21 21:06 Dose: 200 mg Documented by: Dexamethasone 6 mg/ Syringe 1.5 mls @ 1 mls/min IV QAM [facility] Stop: 02/18/21 08:59 Last Admin: 02/12/21 09:15 Dose: 1 mls/min Documented by: Insulin Aspart (Insulin Aspart 100 Units/Ml Vial) 0 units SC ACHS [facility] Stop: 03/10/21 21:29 Last Admin: 02/12/21 09:27 Dose: 8 units Documented by: Insulin Glargine (Insulin Glargine Solostar 100 Units/Ml 3 Ml Pen) 0 units SC QAM [facility]; Protocol Stop: 03/13/21 08:59 Last Admin: 02/12/21 09:27 Dose: 20 units Documented by: Insulin Human NPH (Insulin Human Nph) 40 units SC DAILY [facility] Stop: 03/13/21 08:59 Last Admin: 02/12/21 09:28 Dose: 40 units Documented by: Miscellaneous Information (Pharmacy Glycemic Mgmt Consult) 1 ea N/A UD PRN PRN Reason: Consult Stop: 03/10/21 20:39 Ondansetron HCl (Ondansetron Inj 2 Mg/Ml 2 Ml Vial) 4 mg IV Q6H PRN PRN Reason: Nausea Stop: 03/10/21 20:39 Polyethylene Glycol (Polyethylene (Miralax) 17 Gm Pack) 17 gm PO DAILY PRN PRN Reason: Constipation Stop: 03/10/21 20:39 PG Care Time/CCT Total # of Minutes Spent Total Time Spent with Patient: Total time spent is greater than 50% in coordination of care (as documented) at patient's floor/unit and/or counseling patient: Coding Level of Care Code 62703 Subseq Hosp Care Lvl 2 Diagnoses Pneumonia due to COVID-19 virus U07.1; J12.82 Acute respiratory failure with hypoxia J96.01 Severe obstructive sleep apnea G47.33 HTN, goal below 130/80 I10 Clear cell renal cell carcinoma C64.9 Hyperglycemia R73.9
[2021-02-12] MEDS: GABAPENTIN 100 MG CAP PO SCH (22:19)
[2021-02-13] MEDS: BENZONATATE 100 MG CAPSULE PO PRN ×3 (05:50→19:52)
[2021-02-13 07:38] LABS: BUN Creatinine Ratio 25.8 (10-20); C Reactive Protein 1.48 mg/dl (0-0.29); Calcium 8.4 mg/dl (8.5-10.1); Creatinine Clr Calc Pharmacy 78.8 ml/min; Est GFR (Non-African American) 64.7 ml/min; Potassium 4.5 mmol/L (3.5-5.1)
[2021-02-13] MEDS: INSULIN ASPART 100 UNITS/ML VIAL SC SCH ×4 (08:55→21:21)
[2021-02-13] MEDS: INSULIN GLARGINE SOLOSTAR 100 UNITS/ML 3 ML PEN SC SCH (08:59)
[2021-02-13] MEDS: INSULIN HUMAN NPH SC SCH (09:00)
--- NOTE | 2021-02-13 09:05 | XRay Report ---
XR chest 1V portable CLINICAL HISTORY: COVID, hypoxia. Follow-up bilateral interstitial and alveolar opacities COMPARISON STUDY: 02/08/2021 TECHNIQUE: 1 view of the chest FINDINGS: Single frontal view of the chest demonstrates the heart size to again be enlarged. Compared to previo us examination, there has been significant partial clearing of right lung alveolar opacities. However , there are now new left lung alveolar opacities present. There is no evidence for pleural effusion. There is no evidence for vascular congestion There is no acute osseous pathology. IMPRESSION: Compared to previous study, there has been improvement of the alveolar opacities on the r ight. However, there are new alveolar opacities now seen involving the left lung. ACT 112: Negative or not required by law. Electronically signed by: Alvaro Covarrubias M.D. 02/13/2021 9:04 AM
[2021-02-13] MEDS: dexAMETHasone 6 MG in SYRINGE 0 ML IV SCH (09:14)
[2021-02-13] MEDS: ENOXAPARIN INJ 40 MG/0.4 ML SYR SQ SCH ×2 (09:21→19:51)
[2021-02-13] MEDS: FUROSEMIDE INJ 20 MG/2 ML VIAL IV SCH (11:46)
--- NOTE | 2021-02-13 11:51 | Pharmacy Report ---
Pharmacy Glycemic Short Note 2 - Date of Service February 13, 2021 - Glycemic Short BSG Results (Last 24 hours): 02/12/21 02/12/21 02/12/21 12:55 17:45 20:49 Glucose POC Glucose 199 H 170 H 224 H 02/13/21 02/13/21 06:46 08:05 Glucose 132 H POC Glucose 113 H OUTPATIENT ANTIDIABETIC REGIMEN: * N/A * HbA1C = 10.6% (02/09/21) ASSESSMENT: 02/13: * Evangelist received a total of 100 units of insulin yesterday (40 units NPH + 20 units Lantus + 40 units Novolog) * BSGs were above goal for the most part: [phone] mg/dL * Continues on 6 mg of IV Dexamethasone daily * Fasting BSG was well controlled at 113 mg/dL. * Will reduce Lantus slightly starting tomorrow. NPH may need increased as well to cover steroids better. * No change to Novolog at this time 02/10: * Patient's BSGs yesterday were [phone] mg/dL and fasting today is 211 mg/dL. * Patient received 106 units of insulin yesterday with 60 units of basal (Lantus 20 units and 40 units NPH) and 46 units of bolus. * Dexamethasone 6 mg IV daily to continue. Repeat NPH 40 units daily as appeared effective. Continue Lantus 20 units with scale tomorrow based upon BSG * Loosen Novolog as patient's BSGs trend down significantly yesterday. . PLAN FOR INPATIENT GLYCEMIC CONTROL: * Basal insulin * Lantus 20 units SC x 1 this AM * Lantus 15 units SC daily starting tomorrow * NPH 40 units SC daily with dexamethasone * Bolus insulin * NovoLog per scale ACHS or Q6hrs while NPO * Goal Range: Low 110 mg/dL - High 140 mg/dL * Correction Factor: 20 mg/dL/unit * Nutritional / Prandial insulin per carb ratio of 1 unit per 4 grams CHO consumed PLAN FOR DISCHARGE: * HbA1c of 10.6% is well above goal of less than 7% for this patient. * Patient should be started on triple therapy with Metformin + Basal insulin + GLP1 RA. 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 * Recommend retrial of Metformin XR 500 mg PO daily with evening meal. * Typically the XR formulation of metformin is better tolerated than the immediate release formulation. Continue to titrate metformin dosing upwards as recommended. Dosage increases should be made in increments of 500 mg weekly, up to 2,000 mg/day PO, given in divided doses. Doses above 2000 mg/day may be better tolerated if divided and given 3 times per day with meals. Max: 2,550 mg/day PO, in divided doses * B12 supplementation may be necessary with snf metformin * Recommend GLP1 RA (i.e. Victoza) or SGLT2i (i.e. Jardiance) in addition to metformin. * Sulfonylurea or DPP-4i are other options.
[2021-02-13] MEDS ORDERED: BENZONATATE 100 MG CAPSULE PO PRN (13:24)
--- NOTE | 2021-02-13 17:49 | Hospitalist Progress Note ---
Date of Service February 13, 2021 Assessment & Plan (1) Pneumonia due to COVID-19 virus: Plan: Day 11 of illness on admission on 15L mask from 10L-- pulse ox 95% on CPAP when sleeping due to RAD (does not have a CPAP at home as hasn't yet gone back for the sleep study with titration) overall, looks well dexamethasone 6mg IV daily, day 6 too far along in illness for Remdesivir CRP is < 7.5, not a candidate for baricitinib yet, repeat CRP 02/10 was 4. 02/13 down to 1.48 flutter valve, incentive spirometer given Lasix 20mg IV trials-- continue this until creatinine bumps Lengthy discussion with patient regarding his frustration and wanting to sign out AGAINST MEDICAL ADVICE. I explained our goals is to get his oxygen requirements down to less than 6 L so he can be discharged on home oxygen. Reassurance given For the cough, will add Rayray Truong (2) Acute respiratory failure with hypoxia: Plan: Secondary to COVID-19 as above Aim O2 sats > 90% increased to 15L mask Continue Lasix trials CPAP HS due to RAD (3) Severe obstructive sleep apnea: Plan: CPAP HS and must wear while napping (4) HTN, goal below 130/80: Plan: Hold amlodipine and spironolactone as he has not been taking this encourage hydration (5) Clear cell renal cell carcinoma: Plan: s/p left radical nephrectomy Cr is 1.26, making urine, more clear Lasix today (6) Hyperglycemia: Plan: Patient denies diabetes. Most recent HbA1C 5.5 in 11/2017 although unknown if he was on medications at that time. A1c of 10.6 during this hospitalization consistent with newly diagnosed diabetes mellitus Initially hyperglycemic upfront but blood sugars well controlled on Novolog, Lantus and NPH monitor for hypoglycemia Consult special educator Plan: VTE Prophylaxis - Lovenox 40mg SQ BID Diet - T2DM Admission and Anticipated Discharge Date Admission Date: February 08, 2021 Subjective Patient seen on daily rounds today. He is extremely frustrated mostly at the situation of still being in this hospital. He reports he has had multiple instances that he wanted to sign out AGAINST MEDICAL ADVICE. Other than that, he is breathing comfortably and denies significant shortness of breath. Does get winded with toileting but recovers. No significant desaturation. Still requiring anywhere from 13 to 15 L oxygen mask but his sats are stable in the mid 90s Moving his bowel bladder without difficulty. Denies nausea, vomiting, diarrhea. His only other complaint is cough. Does get very short of breath with these coughing spells. Cough keeping him up at night Review of Systems Review of Systems: All systems reviewed and are unremarkable except as noted in HPI and below Denies fevers, chills, headache, nasal congestion, sore throat, chest pain, shortness of breath, palpitations, orthopnea, PND, abdominal pain, nausea, vomiting, diarrhea, constipation, dysuria, hematuria, frequency, back pain, joint pain or swelling, easy bruising or bleeding, skin lesions or rashes. Physical Exam Physical Exam: General: Resting comfortably in his hospital bed. He does not appear ill or toxic. NAD. HEENT: Head is AT/NC buccal mucosa is moist and pink Neck: No JVD. Negative hepatojugular reflex Cardiac: Distant heart sounds without M/G/R Lungs: Speaking full sentences on supplemental oxygen. He does not have conversational dyspnea or accessory muscle use. He has distant breath sounds but lung thakkar are clear without wheezes, rales or rhonchi Abdomen: Normoactive X4. Soft and nontender in all quadrants. Extremities: + Adiposity without true pitting edema Neuro: A&O X4 cranial nerves II through XII are grossly intact no focal neuro deficits Skin: No obvious skin lesions or rashes Psych: Appropriate affect pleasant and cooperative Results & Data Results & Data ([facility]) Vital Signs (Past 12 Hours) Vital Signs Temp Pulse Resp BP Pulse Ox 02/13/21 08:07 36.4 C L 57 L 16 116/73 94 Laboratory Results 02/10/21 04:55 02/13/21 06:46 PG Care Time/CCT Total # of Minutes Spent Total Time Spent with Patient: Total time spent is greater than 50% in coordination of care (as documented) at patient's floor/unit and/or counseling patient: Coding Level of Care Code 83935 Subseq Hosp Care Lvl 2 Diagnoses Pneumonia due to COVID-19 virus U07.1; J12.82 Acute respiratory failure with hypoxia J96.01 Severe obstructive sleep apnea G47.33 HTN, goal below 130/80 I10 Clear cell renal cell carcinoma C64.9 Hyperglycemia R73.9
[2021-02-13] MEDS: GABAPENTIN 100 MG CAP PO SCH (19:51)
[2021-02-14 08:00] LABS: Creatinine Clr Calc Pharmacy 80.7 ml/min; Est GFR (African American) 77.2 ml/min; Est GFR (Non-African American) 66.6 ml/min
[2021-02-14] MEDS ORDERED: INSULIN GLARGINE SOLOSTAR 100 UNITS/ML 3 ML PEN SC SCH ×2 (09:00)
[2021-02-14] MEDS: INSULIN ASPART 100 UNITS/ML VIAL SC SCH ×4 (09:09→20:53)
[2021-02-14] MEDS: INSULIN HUMAN NPH SC SCH (09:11)
[2021-02-14] MEDS: dexAMETHasone 6 MG in SYRINGE 0 ML IV SCH (09:21)
[2021-02-14] MEDS: ENOXAPARIN INJ 40 MG/0.4 ML SYR SQ SCH ×2 (09:22→20:49)
[2021-02-14] MEDS: BENZONATATE 100 MG CAPSULE PO PRN ×2 (09:24→19:48)
[2021-02-14] MEDS: FUROSEMIDE INJ 20 MG/2 ML VIAL IV SCH (10:42)
--- NOTE | 2021-02-14 10:59 | Hospitalist Progress Note ---
Date of Service February 14, 2021 Assessment & Plan (1) Pneumonia due to COVID-19 virus: Plan: Day 11 of illness on admission on 15L mask from 10L-- pulse ox 96% lengthy D/W patient and staff that patient does not need to be at 96%. Goal= >/=88% during my time in the room, I slowly was able to turn down his supplementation. Sats remained stable. Transitioned to 6L NL and pulse ox 93% Nurse currently has Twan at 4L and his pulse ox is 91% Told patient that he CAN NOT take O2 off to eat. Now that he has been transitioned from the mask to NC, this will be easier for him on CPAP when sleeping due to RAD (does not have a CPAP at home as hasn't yet gone back for the sleep study with titration). D/W patient and that will need sleep study after healed from Covid overall, looks well dexamethasone 6mg IV daily, day 7 too far along in illness for Remdesivir CRP is < 7.5, not a candidate for baricitinib yet, repeat CRP 02/10 was 4. 02/13 down to 1.48 flutter valve, incentive spirometer given Lasix 20mg IV trials-- continue this untless creatinine bumps (1.2 today) For the cough, will add Rayray Truong Lengthy discussion with patient regarding his frustration and wanting to sign out AGAINST MEDICAL ADVICE. I explained our goals is to get his oxygen requirements down to less than 6 L so he can be discharged on home oxygen. Reassurance given 02/14: currently on 4L NC at rest. Suspect approaching readiness for D/C (would like to ensure that he remains stable with this downtitration x24+ hours and that he will not require more than 6L with ambulation). (2) Acute respiratory failure with hypoxia: Plan: Secondary to COVID-19 as above Aim O2 sats > 90% increased to 15L mask--> currently down to 4L NC Continue Lasix trials CPAP HS due to RAD (which will need sleep study for titration trial after recovered from covid) (3) Severe obstructive sleep apnea: Plan: recent diagnosis. Has sleep study to confirm Dx but hasn't yet gone back for titration study to get his set up with CPAP encourage CPAP HS and while napping see above (4) HTN, goal below 130/80: Plan: Hold amlodipine and spironolactone as he has not been taking this BP currently 114/74 (5) Clear cell renal cell carcinoma: Plan: s/p left radical nephrectomy Cr is 1.26, making urine, more clear additional Lasix today (6) Hyperglycemia: Plan: NEWLY DX DM Patient denies diabetes. HbA1C 5.5 in 11/2017 although unknown if he was on medications at that time. A1c of 10.6 during this hospitalization consistent with newly diagnosed diabetes mellitus Initially hyperglycemic upfront but blood sugars well controlled on Novolog, Lantus and NPH monitor for hypoglycemia Consult childbirth educator will need discharged with lantus/log (7) Diabetes mellitus: Plan: see above Plan: VTE Prophylaxis - Lovenox 40mg SQ BID Diet - T2DM Admission and Anticipated Discharge Date Admission Date: February 08, 2021 Subjective Patient seen on daily rounds today. In better spirits. feeling as if he is "stuck". Still on 13-15L. He denies SOB. Has been taking his oxygen off to eat (wearing no oxygen while he eats)--> sats dropping into the low 80's with this. He does then recover. Review of Systems Review of Systems: All systems reviewed and are unremarkable except as noted i n HPI and below Denies fevers, chills, headache, nasal congestion, sore throat, chest pain, shortness of breath, palpitations, orthopnea, PND, abdominal pain, nausea, vomiting, diarrhea, constipation, dysuria, hematuria, frequency, back pain, joint pain or swelling, easy bruising or bleeding, skin lesions or rashes. Physical Exam Physical Exam: General: Resting comfortably in his hospital bed. He does not appear ill or toxic. NAD. HEENT: Head is AT/NC buccal mucosa is moist and pink Neck: No JVD. Negative hepatojugular reflex Cardiac: Distant heart sounds without M/G/R Lungs: Speaking full sentences on supplemental oxygen. He does not have conversational dyspnea or accessory muscle use. He has distant breath sounds but lung thakkar are clear without wheezes, rales or rhonchi Abdomen: Normoactive X4. Soft and nontender in all quadrants. Extremities: + Adiposity without true pitting edema Neuro: A&O X4 cranial nerves II through XII are grossly intact no focal neuro deficits Skin: No obvious skin lesions or rashes Psych: Appropriate affect pleasant and cooperative Results & Data Results & Data ([facility]) Vital Signs (Past 12 Hours) Vital Signs Temp Pulse Resp BP Pulse Ox 02/14/21 10:15 93 02/14/21 09:06 72 114/74 02/14/21 08:17 36.4 C L 60 16 107/73 93 Laboratory Results 02/10/21 04:55 02/14/21 06:35 PG Care Time/CCT Total # of Minutes Spent Total Time Spent with Patient: Total time spent is greater than 50% in coordination of care (as documented) at patient's floor/unit and/or counseling patient: Coding Level of Care Code 49015 Subseq Hosp Care Lvl 2 Diagnoses Pneumonia due to COVID-19 virus U07.1; J12.82 Acute respiratory failure with hypoxia J96.01 Severe obstructive sleep apnea G47.33 HTN, goal below 130/80 I10 Clear cell renal cell carcinoma C64.9 Hyperglycemia R73.9 Diabetes mellitus E11.9
[2021-02-14] MEDS: metFORMIN HCL 500 MG TAB PO SCH (17:56)
[2021-02-14] MEDS ORDERED: guaiFENesin/DEXTROM SYRUP 200MG/20MG 10ML UDC PO STA (20:24)
[2021-02-14] MEDS: GABAPENTIN 100 MG CAP PO SCH (20:49)
[2021-02-15] MEDS: dexAMETHasone 6 MG in SYRINGE 0 ML IV SCH (07:35)
[2021-02-15] MEDS: metFORMIN HCL 500 MG TAB PO SCH (07:35)
[2021-02-15] MEDS: ENOXAPARIN INJ 40 MG/0.4 ML SYR SQ SCH (07:36)
[2021-02-15] MEDS: FUROSEMIDE INJ 20 MG/2 ML VIAL IV SCH (07:37)
--- NOTE | 2021-02-15 08:29 | Pharmacy Report ---
Pharmacy Glycemic Short Note 2 - Date of Service February 15, 2021 - Glycemic Short BSG Results (Last 24 hours): 02/14/21 02/14/21 02/14/21 08:21 12:18 17:12 POC Glucose 87 188 H 115 H 02/14/21 02/15/21 20:47 08:10 POC Glucose 114 H 79 OUTPATIENT ANTIDIABETIC REGIMEN: * N/A * HbA1C = 10.6% (02/09/21) ASSESSMENT: 02/15: * 65 units given over last 24 hrs while tolerating a diet and receiving IV steroids * Fasting BSG 79 this AM w/ 10 units Lantus and 40 units NPH given yesterday; will d/c Lantus at this time * Post-prandial BSGs fairly well controlled with current orders, but trending lower second half of the day -will continue current CR / CF for now, but may need to consider reduction in bolus dosing if trending lower 02/13: * Evangelist received a total of 100 units of insulin yesterday (40 units NPH + 20 units Lantus + 40 units Novolog) * BSGs were above goal for the most part: [phone] mg/dL * Continues on 6 mg of IV Dexamethasone daily * Fasting BSG was well controlled at 113 mg/dL. * Will reduce Lantus slightly starting tomorrow. NPH may need increased as well to cover steroids better. * No change to Novolog at this time 02/10: * Patient's BSGs yesterday were [phone] mg/dL and fasting today is 211 mg/dL. * Patient received 106 units of insulin yesterday with 60 units of basal (Lantus 20 units and 40 units NPH) and 46 units of bolus. * Dexamethasone 6 mg IV daily to continue. Repeat NPH 40 units daily as appeared effective. Continue Lantus 20 units with scale tomorrow based upon BSG * Loosen Novolog as patient's BSGs trend down significantly yesterday. . PLAN FOR INPATIENT GLYCEMIC CONTROL: * Basal insulin * DC Lantus * continue NPH 40 units SC daily with dexamethasone IV * Bolus insulin * NovoLog per scale ACHS or Q6hrs while NPO * Goal Range: Low 120 mg/dL - High 160 mg/dL * Correction Factor: 20 mg/dL/unit * Nutritional / Prandial insulin per carb ratio of 1 unit per 5 grams CHO consumed PLAN FOR DISCHARGE: * HbA1c of 10.6% is well above goal of less than 7% for this patient. * Ultimately, triple therapy with Metformin + Basal insulin + GLP1 RA would be recommended, however would recommend dual therapy on discharge w/ subsequent addition of 3rd agent by PCP or outpt Endocrinology. 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 * Recommend retrial of Metformin XR 500 mg PO daily with evening meal. * Typically the XR formulation of metformin is better tolerated than the imme diate release formulation. Continue to titrate metformin dosing upwards as recommended. Dosage increases should be made in increments of 500 mg weekly, up to 2,000 mg/day PO, given in divided doses. Doses above 2000 mg/day may be better tolerated if divided and given 3 times per day with meals. Max: 2,550 mg/day PO, in divided doses * B12 supplementation may be necessary with salvage determiner metformin * Recommend GLP1 RA (i.e. Victoza) or SGLT2i (i.e. Jardiance) in addition to metformin. * Sulfonylurea or DPP-4i are other options.
[2021-02-15] MEDS: INSULIN ASPART 100 UNITS/ML VIAL SC SCH ×2 (08:33→13:11)
[2021-02-15] MEDS: INSULIN HUMAN NPH SC SCH (08:35)
--- NOTE | 2021-02-15 15:00 | Discharge Summary ---
Date of Service February 15, 2021 Admission HPI Per Admitting Provider Evangelist Ku is a 55 year old male who presents to the ER with shortness of breath. He is not vaccinated for COVID-19. He reports being unwell since 01/30 with loose stools, generalized myalgias and shortness of breath. Non-productive cough. No chest or abdominal pain. he has not received any medical treatment thus far. He reports exposure to his who is COVID +ve and also hospitalized at [facility] ([facility]avon [facility]). He has not taken his medications for a number of days. Former smoker, quit 5-6 years ago, previously 1 pack/day. Rare alcohol. In the ER; SARS COV-2 PCR positive. CXR concerning for viral pneumonia. O2 sats 88% on room air which improved to 94% on 3LPM O2. He appears to desaturate more than this when sleeping and was recently diagnosed with severe RAD awaiting further workup to get his CPAP machine. CRP 3.98. Na level 130. Mg level 1.7. He was given dexamethasone 6mg IV for COVID-19 treatment. NSS 500ml bolus due to hypovolemic (dehydrated) hyponatremia, duoneb (he did not notice a significant difference in his breathing with this) and acetaminophen. Glucose 228 on admission however he denies any diabetes and is not on any specific medications for this. Admission Exam Per Admitting Provider Constitutional: well developed and + morbidly obese; + not well nourished and no acute distress Eyes: + anicteric sclerae; normal pupil size ENMT: Mouth: + dry oral mucous membranes Neck: trachea midline, no thyromegaly + short neck and + thick neck Respiratory: + respiratory distress, + labored breath ing, + retractions, + uses accessory muscles, + cough, able to speak in complete sentences and + tachypneic; + abnormal respiratory effort, normal respiratory pattern and expiratory phase not prolonged Auscultation: + rhonchi (bilateral anteriorly, good air entry to bases); no diminished lung sounds, no crackles and no wheezes Cardiovascular: Rate/Rhythm: regular rhythm and + tachycardic Heart Sounds: + murmur (systolic 2/6 RUSB) Extremities: normal capillary refill and + pedal edema (trace ankle b/l equal); no calf tenderness Gastrointestinal (Abdomen): normal bowel sounds, soft, nontender, no hepatosplenomegaly Musculoskeletal: no cyanosis or clubbing, extremities motor strength 5/5 Skin: no rashes, warm and dry Neurologic: moves all extremities and awake; not confused Psychiatric: A+Ox3, euthymic affect Genitourinary: no CVA tenderness Principal Diagnosis COVID-19 Pneumonia Hypoxia Discharge Exam Vital Signs Temp Pulse Pulse Pulse Pulse Pulse Resp 02/15/21 13:30 65 86 81 68 02/15/21 07:33 02/15/21 07:03 36.3 C L 65 16 02/14/21 22:20 36.6 C 56 L 19 02/14/21 16:01 36.5 C 60 19 Resp Resp Resp Resp BP BP Pulse Ox 02/15/21 13:30 16 22 18 16 02/15/21 07:33 128/80 02/15/21 07:03 91 02/14/21 22:20 132/78 92 02/14/21 16:01 125/76 91 Pulse Ox Pulse Ox Pulse Ox Pulse Ox 02/15/21 13:30 90 89 L 93 87 L 02/15/21 07:33 02/15/21 07:03 02/14/21 22:20 02/14/21 16:01 Intake and Output 02/14/21 02/15/21 02/15/21 22:59 06:59 14:59 Intake Total 240 / 720 Balance 240 / 720 Intake: Oral 240 / 720 Other: # Unmeasured Voids 1 Weight 109.769 kg Patient Weight 02/16/21 06:59 Weight 109.769 kg GENERAL: 55 yo obese WM. Awake, alert, pleasant. NAD. LUNGS: CTAB. No accessory muscle use or conversational dyspnea. No W/R/R. CARDIOVASCULAR: Regular rate and rhythm. No M/G/R. No JVD. ABDOMEN: Soft, NT. Bowel sounds normoactive x 4 quad. EXTREMITIES: No edema. Non-tender. Peripheral pulses +2/4. NEUROLOGIC: A&O x3. No focal neurological deficits. CN II-XII grossly intact. PSYCHIATRIC: Cooperative. Appropriate mood and affect. SKIN: Warm, dry, intact. No rashes or lesions. 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 COMPARISON STUDY: No previous studies for comparison. TECHNIQUE: 1 view of the chest FINDINGS: Single frontal view of the chest demonstrates the cardiomediastinal silhouette to be within normal limits. Patchy interstitial and alveolar opacities are present bilaterally. The findings are most characteristic of a viral type pneumonitis. Covid 19 pneumonia should be excluded. There is no evidence for pleural effusion. There is no evidence for vascular congestion. There is no acute osseous pathology. IMPRESSION: Patchy interstitial and alveolar opacities bilaterally, right greater than left characteristic of a viral type pneumonitis and probable Covid 19 pneumonia. ACT 112: Negative or not required by law. Electronically signed by: Alvaro Covarrubias M.D. 02/08/2021 1:36 PM Chest X-Ray 02/13/21 08:00 XR chest 1V portable CLINICAL HISTORY: COVID, hypoxia. Follow-up bilateral interstitial and alveolar opacities COMPARISON STUDY: 02/08/2021 TECHNIQUE: 1 view of the chest FINDINGS: Single frontal view of the chest demonstrates the heart size to again be enlarged. Compared to previous examination, there has been significant partial clearing of right lung alveolar opacities. However, there are now new left lung alveolar opacities present. There is no evidence for pleural effusion. There is no evidence for vascular congestion There is no acute osseous pathology. IMPRESSION: Compared to previous study, there has been improvement of the alveolar opacities on the right. However, there are new alveolar opacities now seen involving the left lung. ACT 112: Negative or not required by law. Electronically signed by: Alvaro Covarrubias M.D. 02/13/2021 9:04 AM Diabetes Follow up Diabetes Follow-up Needed for HgbA1c >9%,Newly Diagnosed Diabetes Hospital Course (1) Pneumonia due to COVID-19 virus: Day 11 of illness on admission on 15L mask from 10L-- pulse ox 96% lengthy D/W patient and staff that patient does not need to be at 96%. Goal= >/=88% during my time in the room, I slowly was able to turn down his supplementation. Sats remained stable. Transitioned to 6L NL and pulse ox 93% Nurse currently has Twan at 4L and his pulse ox is 91% Told patient that he CAN NOT take O2 off to eat. Now that he has been transitioned from the mask to NC, this will be easier for him on CPAP when sleeping due to RAD (does not have a CPAP at home as hasn't yet gone back for the sleep study with titration). D/W patient and that will need sleep study after healed from Covid overall, looks well dexamethasone 6mg IV daily, day 7 too far along in illness for Remdesivir CRP is < 7.5, not a candidate for baricitinib, repeat CRP 02/10 was 4. 02/13 down to 1.48 flutter valve, incentive spirometer given Lasix 20mg IV daily-- continue this unless creatinine bumps (1.2 today) For the cough, Rayray Truong added Today, 02/15, I was able to wean patient from 3L to room air. His pulse ox remained stable >/= 90%. Two step pulse ox performed at he requires 2L O2 with ambulation. (2) Acute respiratory failure with hypoxia: Secondary to COVID-19 as above Aim O2 sats > 90% increased to 15L mask--> currently down to 4L NC Continue Lasix trials CPAP HS due to RAD (which will need sleep study for titration trial after recovered from covid) (3) Severe obstructive sleep apnea: recent diagnosis. Has sleep study to confirm Dx but hasn't yet gone back for titration study to get his set up with CPAP encourage CPAP HS and while napping F/u with PCP to arrange for titration study to get his CPAP set up for home (4) HTN, goal below 130/80: Hold amlodipine and spironolactone as he has not been taking this BP currently 114/74 (5) Clear cell renal cell carcinoma: s/p left radical nephrectomy Cr is 1.26, making urine, more clear additional Lasix today (6) Hyperglycemia: According to car pusher note, pt has been diabetic for ~5 years. Previously on Metformin but stopped taking at time of nephrectomy d/t improved BG values. Was told at that time he was no longer diabetic. HbA1C 5.5 in 11/2017 although unknown if he was on medications at that time. A1c of 10.6 during this hospitalization consistent with diagnosed diabetes hong itus Initially hyperglycemic upfront but blood sugars well controlled Pharmacy consulted for glycemic management, initially placed on Lantus and Novolog but then switched from Lantus to Novolin-N 40 units daily Metformin restarted 500mg BID (will benefit d/t insulin resistance) D/T A1c >9%, car pusher consulted. Recommended pt to be checking blood sugars at least once daily and dietary modifications. Given glucometer and will need additional testing supplies upon d/c (which were sent to his pharmacy). Advise f/u with PCP upon d/c. Will reduce Novolin-N to 30 units SQ daily d/t some fasting blood glucose values that have been lower and that is currently on Decadron, which would anticipate even lower readings once no longer taking the Decadron. (7) Diabetes mellitus: see above Patient is medically and hemodynamically stable for discharge home today with above as noted. Complete Decadron as outpatient x 3 more days, use oxygen as directed. Stay off work until completely recovered from COVID and no longer requiring supplemental O2. He will need to be medically cleared to return to work by his PCP. Advise close f/u with his provider within 1 week of discharge. Total Time Total Time Spent Total Time Spent (In Minutes): >30 minutes Discharge Plan Discharge Items Patient Disposition: Home - Self-Care Reason For Visit: sob Discharge Diagnosis: COVID-19 Pneumonia Condition on Discharge: Fair Activity: Per Instructions section Activity Comment: Rest, use oxygen w/ activity, slowly work towards resuming normal activity Non-emergency contact: Primary Care Provider Call non-emergency contact if: you have any medication questions and your symptoms worsen Follow-up/Referrals: Serina Yancey MD [Primary Care Provider] - (pt must set up and/or access patient portal to set up telehealth appt due to covid diagnosis as per office's nurse. ) Diet: Carb Consistent or DM2 Addtl Attending Provider Instructions: 1. Take all medications as directed. 2. Check blood sugars as instructed by car pusher. Supplies will be sent to pharmacy. 3. Use 2L of oxygen with activity. 4. Rest, slowly increase activity back to normal. 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 5. Follow up with PCP within 1 week of discharge. Pending Studies at Discharge: No Stand-Alone Forms: My [facility], Smoking Cessation Medications and DC Order Prescriptions: New metformin 500 mg Tablet 500 mg PO BIDM Qty: 60 RF: 0 Novolin N NPH U-100 Insulin 100 unit/mL Suspension 30 unit SC DAILY Qty: 30 RF: 0 (DME) OneTouch Verio test strips Strip See Rx Instructions .Route Qty: 100 RF: 0 (DME) lancets [OneTouch Delica Lancets] 30 gauge misc See Rx Instructions .Route Qty: 100 RF: 0 dexamethasone [Decadron] 6 mg tablet 6 mg PO DAILY Qty: 3 RF: 0 Continued gabapentin 100 mg capsule 100 - 200 mg PO HS PRN (Reason: pain) Qty: 60 RF: 5 Discontinued amlodipine 5 mg tablet 5 mg PO BID Qty: 180 RF: 0 spironolactone 25 mg tablet 25 mg PO DAILY Qty: 30 RF: 6 Discharge Orders: Discharge Order (Routine); Ordered 02/15/21 Ordered By: Belle Lobo/Other Patient Handouts: COVID-19 Home Care, High Blood Sugar (Hyperglycemia), Hypoglycemia (Low Blood Sugar), Diabetes: Meal Planning, Type 2 Diabetes Admission Data Admit Date/Time: 02/08/21 15:53 Attending Provider: Srinath Daugherty Admit Provider: Victor M Alejandra Primary Care Provider: Serina Yancey Other Providers: Victor M Alejandra Other Interventions: Discharge Summary Assessment (RN) Last Done: 02/15/21 15:04 Coding Level of Care Code D/C DAY MANAGEMENT >30 MINS Diagnoses Pneumonia due to COVID-19 virus U07.1; J12.82 Acute respiratory failure with hypoxia J96.01 Severe obstructive sleep apnea G47.33 HTN, goal below 130/80 I10 Clear cell renal cell carcinoma C64.9 Hyperglycemia R73.9 Diabetes mellitus E11.9
== END 2021-02-15 17:15 | disposition home or self-care (01) | DRG 177 ==
LOC: ED 12:41 → SUATTDRO 15:53 → EDINP 15:53 → 3N 02-10 11:29 → 3W 02-12 21:36
DX: E11.9 Type 2 diabetes mellitus without complications; U07.1 COVID-19; E66.9 Obesity, unspecified; N40.1 Benign prostatic hyperplasia with lower urinary tract symptoms; J96.01 Acute respiratory failure with hypoxia; Z87.891 Personal history of nicotine dependence; Z68.41 Body mass index [BMI] 40.0-44.9, adult; Z85.528 Personal history of other malignant neoplasm of kidney; J12.82 Pneumonia due to coronavirus disease 2019; Z90.5 Acquired absence of kidney; G47.33 Obstructive sleep apnea (adult) (pediatric); I10 Essential (primary) hypertension